=== PATIENT | female | born 1980 | race Caucasian/White ===

== ENCOUNTER 2020-10-07 20:45 | Inpatient (IN) | payer OTHER, SELFPAY ==
[2020-10-07 20:57] VITALS: BP 141/87; PULSE 85; RESP 20; TEMP 36.1; O2SAT 98; BMI 41.5
--- NOTE | 2020-10-07 21:06 | ED.PSYCH ---
HPI - Psych General Chief Complaint: Psychiatric Symptoms Stated Complaint: crisis Time Seen by Provider: 10/07/20 20:59 Source: patient Mode of arrival: ambulatory History of Present Illness HPI Narrative: Patient for respite care states I can not do it anymore I do not want to live . Denies drug overdose or plan. States very depressed and very stressed at the same time, took an Ativan prior to coming in however just cannot handle herself anymore. Denies chest pain shortness of breath or recent illness. Denies headache or abdominal pain MD complaint: suicidal ideation and feels depressed Related Data Home Medications Medication Instructions Recorded Confirmed acetazolamide 1 tab PO TID 10/07/20 10/07/20 duloxetine 1 cap PO DAILY 10/07/20 10/07/20 quetiapine 1 tab PO DAILY 10/07/20 10/07/20 Allergies Allergy/AdvReac Type Severity Reaction Status Date / Time metoclopramide [From REGLAN] Allergy Unknown AGITATION Unverified 07/30/20 18:37 sulfamethoxazole Allergy Unknown STOMACH Unverified 07/30/20 18:37 [From BACTRIM] UPSET trimethoprim [From BACTRIM] Allergy Unknown STOMACH Unverified 07/30/20 18:37 UPSET Review of Systems Review of Systems: Constitutional : No Weight loss, No Fever, No Chills, No Night Sweats, No Fatigue, No Malaise ENT/Mouth : No Hearing loss, No Ear Pain, No Nasal Congestion, No Sinus Pain, No Hoarseness, No sore throat, No Rhinorrhea, No Swallowing Difficulty Eyes: No Eye Pain, No Swelling, No Redness, No Foreign Body, No Discharge, No Vision Changes Cardiovascular : No Chest Pain, No SOB, No Dyspnea on Exertion, No Orthopnea, No Edema, No Palpitations Respiratory : No Cough, No Sputum, No Wheezing, No Smoke Exposure, No Dyspnea Gastrointestinal : No Nausea, No Vomiting, No Diarrhea, No Constipation, No abdominal Pain, No Hematochezia, No Melena Genitourinary : no irregular bleeding, No Dysuria, No Urinary Frequency, No Hematuria, No Urinary Incontinence, No Urgency, No Flank Pain, No Urinary Flow Changes, No Hesitancy Musculoskeletal : No joint pain, No Myalgias, No Joint Swelling Skin : No Skin Lesions, No rash Neuro : No Weakness, No Numbness, No Paresthesias, No Loss of Consciousness, No Dizziness, No Headache Psych : No Anxiety/Panic, positive Depression, positive SI/HI/AH/VH, No Social Issues, Heme/Lymph: No Bruising, No Bleeding,No Lymphadenopathy Endocrine : No Polyuria, No Polydipsia, No Temperature Intolerance PMF Past Medical History Medical History (Updated 10/07/20 @ 21:06 by Jeet Whitaker DO) Depressed PTSD (post-traumatic stress disorder) Family History Family History (Updated 10/07/20 @ 21:07 by Jeet Whitaker DO) Other Family history non-contributory Social History Social History (Updated 10/07/20 @ 21:07 by Jeet Whitaker DO) Household Members: Family Advance Directives: No Advance Directives Information Provided: Yes Physical Exam Vital Signs: Vital Signs: Last Vital Signs Temp 97.9 F 10/08/20 06:00 Pulse 72 10/08/20 06:00 Resp 18 10/08/20 06:00 BP 117/63 10/08/20 06:00 Pulse Ox 98 10/08/20 06:00 Body Mass Index 41.5 Vital signs reviewed Appearance: Alert. Oriented X3. No acute distress. Eyes: Pupils equal, round and reactive to light. ENT: Pharynx normal. Neck: Normal inspection. Neck supple. No lymph nodes noted. No crepitus CVS: Normal heart rate and rhythm. Pulses normal. Normal S1 and S2 Respiratory: No respiratory distress. Breath sounds normal. No Wheezing. No rales Abdomen: Soft and nontender. No rigidity. No distention. good BS x4 Skin: Skin warm and dry. Normal skin color. Normal skin turgor. Extremities: No lower extremity edema. Neurovascular intact to all extremities. No Lacerations. No Rash Neuro: Oriented X 3. No motor deficit. No sensory deficit. Moving all extermities. No slurred speech. Course Course Course Narrative: Patient is medically cleared for psych evaluation At 07:00 patient awaiting pH an evaluation MDM - Psych Restraints Face to Face Assessment: Face to Face Assessment: Current Situation: After assessment of the patient, a review of the pertinent medical record and a discussion with nursing staff, I feel the patient requires a restrain intervention. Reaction To: [] Medical Condition: [] Behavioral State: [] Continued Need: [] Medical Records Attestation: I reviewed the patient's medical records. Medical records narrative: Last psych evaluation seen patient is a history depression and poor coping skills with PTSD Discharge Plan Discharge Prescriptions: No Action acetazolamide 250 mg tablet 1 tab PO TID RF: 0 duloxetine 20 mg capsule,delayed release(DR/EC) 1 cap PO DAILY RF: 0 quetiapine 50 mg tablet 1 tab PO DAILY RF: 0
[2020-10-07] MEDS: HaloperidoL 1 MG TABLET 2 MG PO (21:26)
[2020-10-07] MEDS: LORazepam 1 MG TABLET PO (21:26)
--- NOTE | 2020-10-07 21:35 | PC.NURSE ---
Patient reported, she is mad , upset, depressed, angry, and frustrated but was unable to describe underlying trigger. Patient was actively self dialoguing and tearful, provider notified/ordered Haldol 2 mg and Ativan 1 mg/administered as ordered/ patient needed little of prompting.
--- NOTE | 2020-10-07 21:46 | PC.NURSE ---
ANSHU faxed/called/spoke with Anand/confirmed received of referral, no ETA at this time,
--- NOTE | 2020-10-07 23:29 | PC.NURSE ---
Patient refused her lab, will re-approach later, currently in bed seems sleeping, respiration +/=/non-labored bilaterally, will continue to monitor.
--- NOTE | 2020-10-08 02:01 | PC.NURSE ---
ROSARION completed assessment with patient, patient compliant and engaged, pending disposition, patient in bed currently lying on her side, no distress reported, will continue to monitor.
[2020-10-08 06:00] VITALS: BP 117/63; PULSE 72; RESP 18; TEMP 36.6; O2SAT 98
--- NOTE | 2020-10-08 06:56 | PC.NURSE ---
Report recieved. PT currently resting, breakfast at bedside. PT is inpatient bedsearch.
[2020-10-08 07:15] LABS: UPreg QC Valid YES; Urine Pregnancy NEGATIVE (NEGATIVE)
[2020-10-08 07:45] LABS: Amphetamine Screen Urine Not Detected (Not Detect); Barbiturates, Urine Not Detected (Not Detect); Benzodiazepines Screen Urine Not Detected (Not Detect); Cannabinoid Screen Urine Not Detected (Not Detect); Cocaine Screen Urine Not Detected (Not Detect); Opiate Screen Urine Not Detected (Not Detect); Phencyclidine Screen Urine Not Detected (Not Detect)
[2020-10-08 09:54] VITALS: BP 114/52; PULSE 79; RESP 18; TEMP 36.7; O2SAT 98
[2020-10-08 10:16] LABS: Basophils Percent Auto 0.3 % (0-2); Eosinophils Absolute Auto 0.3 X10*3/uL (0.0-0.4); Eosinophils Percent Auto 2.2 % (0-4); Hematocrit 41.7 % (37-47); Hemoglobin 13.9 g/dl (12.0-16.0); Imm Gran Abs Auto 0.03 X10*3/uL (0.00-0.03); Imm Gran Pct Auto 0.2 % (0.0-0.4); Lymphocytes Absolute Auto 5.3 X10*3/uL (1.2-4.9); Lymphocytes Percent Auto 39.2 % (20-40); MANUAL DIFF FLAG SCAN; Mean Corpuscular HGB Conc 33.3 g/dl (31.0-35.0); Mean Corpuscular Volume 96.1 fL (80-98); Mean Platelet Volume 10.1 fL (9.4-12.3); Monocytes Absolute Auto 1.1 X10*3/uL (0.1-1.2); Monocytes Percent Auto 7.8 % (2-11); Neutrophils Absolute Auto 6.9 X10*3/uL (2.0-8.3); Neutrophils Percent Auto 50.3 % (45-73); Platelet Count 270 X10*3/uL (160-400); Red Blood Count 4.34 X10*6/uL (4.20-5.50); Red Cell Distribution Width 13.2 % (11.0-16.0); SCAN SMEAR FLAG 1; White Blood Count 13.6 X10*3/uL (4.8-10.8)
[2020-10-08 10:42] LABS: Alanine Aminotransferase 19 U/L (0-31); Albumin Level 3.7 g/dL (3.5-5.0); Alkaline Phosphatase 75 U/L (39-117); Aspartate Amino Transferase 14 U/L (5-31); Bilirubin Direct < 0.2 mg/dL (0.0-0.5); Bilirubin Total 0.2 mg/dL (0.0-1.0); Blood Urea Nitrogen 13 mg/dL (9-16); Creatinine Clr Calc Pharmacy 119.1; Estimated Glomerular Filt Rate > 60; Glucose Random 87 mg/dL (60-115); Total Protein 6.3 g/dL (6.5-8.0)
[2020-10-08] MEDS: QUEtiapine Fumarate 50 MG TABLET PO (10:48)
[2020-10-08 10:57] LABS: Anion Gap 10 (12-20); Carbon Dioxide 26 mmol/L (22-29); Chloride 106 mmol/L (96-108); Potassium 4.1 mmol/l (3.3-5.1); Sodium 138 mmol/L (135-145)
[2020-10-08 11:05] LABS: SLIDE REVIEW VERIFIED
--- NOTE | 2020-10-08 16:34 | PC.NURSE ---
PT currently sleeping, wakes easily to verbal stimuli, minimal responses.
[2020-10-08 17:29] VITALS: BP 103/56; PULSE 70; RESP 18; TEMP 36.5; O2SAT 95
--- NOTE | 2020-10-08 19:04 | PC.NURSE ---
No development on bed search status, patient in bed resting, quiet, and no distress verbalized, will continue to monitor.
--- NOTE | 2020-10-08 20:31 | PC.NURSE ---
Patient in bed resting, ate 75% of her supper, refused her HS Diamox, denied distress. Will continue to monitor.
[2020-10-08 21:50] VITALS: BP 102/55; PULSE 68; RESP 16; TEMP 36.1; O2SAT 95
--- NOTE | 2020-10-08 21:50 | PC.NURSE ---
Patient has been not taking her Acetazolamide which is prescribed for her optic condition, attempted x3 to educate about the importance of medication, patient reported she is aware of the importance and does not want to take it. Provider notified
[2020-10-09] VITALS (9 sets, daily range): BP systolic 104–138; BP diastolic 56–72; PULSE 59–80; RESP 16–18; TEMP 36.3–36.6; O2SAT 96–98
--- NOTE | 2020-10-09 07:25 | PC.NURSE ---
Report received from ANDRIA Velasco. Pt resting, resp unlabored.
[2020-10-09] MEDS: QUEtiapine Fumarate 50 MG TABLET PO (09:59)
[2020-10-09 10:50] LABS: COVID-19 Test Negative (Negative); IDNOW Serial# 9DD0AD1C
--- NOTE | 2020-10-09 12:20 | PC.NURSE ---
Provider notified pt continuing to decline diamox.
--- NOTE | 2020-10-09 13:58 | PC.NURSE ---
Pt resting, resp unlabored
--- NOTE | 2020-10-09 18:57 | PC.NURSE ---
Report received. PT sitting in her room quietly. Complaints of dizziness reported to previous nurse. Provider notified. PT is inpatient bed search.
--- NOTE | 2020-10-09 18:57 | PC.NURSE ---
Pt reporting that she is 'not feeling right' and that she is dizzy. States that these symptoms have been present for over a month, 'that's part of the reason I'm here, I can't stand it anymore.' Pt encouraged to drink fluids, provided w/ water. Wilbur Lamb aware that pt is requesting to see provider.
--- NOTE | 2020-10-09 20:44 | CT_ITS ---
EXAMINATION: CT HEAD WITHOUT CONTRAST CLINICAL INFORMATION: Dizziness. COMPARISON: MRA/MRV from 04/23/2019. TECHNIQUE: Contiguous axial imaging was performed from the skull base to vertex without intravenous administration of contrast. This CT examination was performed using dose optimization techniques as appropriate, variously including the following: *Automated exposure control. *Adjustment of mA and/or kV according to patient size (this includes techniques or standardized protocols for targeted exams where dose is matched to indication/reason for exam; i.e. extremities or head). *Use of iterative reconstruction technique. DLP: 727 mGy-cm FINDINGS: There is no evidence of acute intracranial hemorrhage or edematous territorial infarction. There is no abnormal attenuation within the brain parenchyma. Mohamud-white matter differentiation is preserved. The ventricles are normal in size and configuration. No evidence for obstructive hydrocephalus. No abnormal mass effect or midline shift. The sella turcica is partially expanded empty. No extra-axial fluid collections. No demonstrated mass effect in the region of the right caudate head the site of potential focus of enhancement on prior MRA. No acute soft tissue or osseous abnormalities. The mastoid air cells and paranasal sinuses are clear. The right jugular bulb is mildly high riding. Otherwise, normal CT appearance of the inner ears. CT/CT head/brain wo con IMPRESSION: 1. No evidence of acute intracranial hemorrhage or edematous territorial infarction. 2. The right jugular bulb is mildly high riding. Otherwise, normal CT appearance of the inner ears.
[2020-10-09] MEDS: acetaZOLAMIDE 250 MG TABLET PO (21:15)
[2020-10-09] MEDS: Meclizine HCl 25 MG TABLET PO (21:15)
--- NOTE | 2020-10-09 23:29 | PC.NURSE ---
ANSHU called for MSU over the phone with the patient. PT accepted call and speaking with Katiuska now.
[2020-10-10] MEDS: diphenhydrAMINE HCL 25 MG TABLET PO (05:26)
--- NOTE | 2020-10-10 05:30 | PC.NURSE ---
PT woke up complaining of a shocking sensation throughout her body. PT stated that her prescribed medication, acetazolamide, along with additional meclizine helped to relieve the same symptoms last night. PT was previously refusing her acetazolamide TID in fear of it worsen her condition. PT was educated on the actions of the medication and encouraged to continue taking it at its intended times each day. PT agreed that she would continue taking the medication to help with her condition.
[2020-10-10 06:27] VITALS: RESP 17
--- NOTE | 2020-10-10 07:01 | PC.NURSE ---
Report received, pt eating breakfast, calm and cooperative. Pt remains inpatient bedsearch.
[2020-10-10] MEDS: acetaZOLAMIDE 250 MG TABLET PO ×3 (09:44→20:12)
[2020-10-10 10:03] VITALS: BP 126/66; PULSE 71; RESP 18; TEMP 36.3; O2SAT 98
[2020-10-10 16:36] VITALS: BP 112/68; PULSE 64; RESP 20; TEMP 36.8; O2SAT 97
--- NOTE | 2020-10-10 18:56 | PC.NURSE ---
Report received. PT is lying in bed quietly. Calm and cooperative. Inpatient bed search in progress.
[2020-10-10] MEDS: QUEtiapine Fumarate 50 MG TABLET PO (20:12)
[2020-10-10 21:04] VITALS: BP 115/68; PULSE 70; RESP 20; TEMP 36.9; O2SAT 98
[2020-10-11 01:07] VITALS: RESP 17
[2020-10-11 06:45] VITALS: BP 100/38; PULSE 64; RESP 17; TEMP 36.3; O2SAT 98
--- NOTE | 2020-10-11 07:05 | PC.NURSE ---
Report recieved. PT currently sleeping, respirations even and unlabored, in no apparent distress. PT remains inpatient bedsearch.
[2020-10-11] MEDS: acetaZOLAMIDE 250 MG TABLET PO ×3 (09:04→21:45)
[2020-10-11 09:41] VITALS: BP 104/63; PULSE 65; RESP 18; TEMP 36.4; O2SAT 97
--- NOTE | 2020-10-11 15:19 | PC.NURSE ---
Pt currently coloring, multiple questions about medications, medication education given. PT calm and cooperative, denies complaints. PT pleasant in conversation.
[2020-10-11 17:18] VITALS: BP 100/71; PULSE 64; RESP 18; TEMP 36.4; O2SAT 99
--- NOTE | 2020-10-11 19:17 | PC.NURSE ---
REPORT RECEIVED FROM ANDRIA CALHOUN. PATIENT STATES I HAVEN'T POOPED FOR A COUPLE OF DAYS, CAN I GET SOMETHING TO HELP WITH MY CONSTIPATION? MD NOTIFIED. PT REMAINS CALM/COOPERATIVE/PLEASANT. SEEN PREVIOUSLY BY Katiuska, SECTION 12, BEDSEARCH, PLAN FOR INPATIENT PLACEMENT. WILL CONTINUE TO MONITOR.
--- NOTE | 2020-10-11 20:51 | PC.NURSE ---
PATIENT REQUESTED AND GIVEN ICE WATER. PT REMAINS CALM/COOPERATIVE. COLORING AND WATCHING TV AT THIS TIME. WILL CONTINUE TO MONITOR. NO ACUTE DISTRESS NOTED.
[2020-10-11] MEDS: Milk of Magnesia 30 ML ORAL.SUSP PO (21:45)
[2020-10-11] MEDS: QUEtiapine Fumarate 50 MG TABLET PO (21:46)
--- NOTE | 2020-10-11 22:48 | PC.NURSE ---
PATIENT IN ROOM SLEEPING AT THIS TIME. NO ACUTE DISTRESS NOTED.
--- NOTE | 2020-10-11 23:34 | PC.NURSE ---
PATIENT REQUESTED AND GIVEN WARM BLANKET. NO ACUTE DISTRESS. WILL CONTINUE TO MONITOR.
[2020-10-11 23:39] VITALS: BP 128/69; PULSE 70; RESP 17; TEMP 36.8; O2SAT 17
--- NOTE | 2020-10-12 02:50 | PC.NURSE ---
PATIENT SLEEPING AT THIS TIME, RESPIRATIONS EVEN/UNLABORED. NO ACUTE DISTRESS NOTED. WILL CONTINUE TO MONITOR.
--- NOTE | 2020-10-12 07:19 | PC.NURSE ---
Report received from ANDRIA Pereira. Pt resting, resp unlabored.
[2020-10-12] MEDS: acetaZOLAMIDE 250 MG TABLET PO ×2 (09:08→20:55)
--- NOTE | 2020-10-12 10:36 | PC.NURSE ---
Care team called to notify the pod that pt has been accepted to [facility]. Pt aware and appears pleased w/ news. N clinician notified.
[2020-10-12 10:55] VITALS: BP 107/60; PULSE 75; RESP 20; TEMP 36.2
[2020-10-12 12:00] VITALS: RESP 18
[2020-10-12 12:58] LABS: Glucose Urine UA NEG (NEG); Leukocyte Esterase Urine NEG (NEG); Nitrite Urine NEG (NEG); Specific Gravity - Urine 1.015 (1.005-1.025); Urine Blood NEG (NEG); Urine Ketones NEG (NEG); Urine Protein NEG (NEG-TRACE)
[2020-10-12 13:02] LABS: Appearance Urine CLEAR; Color Urine YELLOW
[2020-10-12] MEDS: polyethylene glycoL 3350 17 GM POWD.PACK PO (13:29)
--- NOTE | 2020-10-12 13:47 | PC.NURSE ---
Pt alert, out in common area, coloring w/ another pt affect even. Report given to ANDRIA Damon.
--- NOTE | 2020-10-12 14:37 | PC.NURSE ---
Pt reports some results from [facility]. Care team in to transfer pt to . Pt in agreement w/ transfer, no concerns reported.
--- NOTE | 2020-10-12 19:00 | PC.ADMIT ---
pt is a 40 year-old female who presented to [facility] ED from respite due to verbalizing for safety and endorsing SI with a plan to jump in from of traffic. pt arrived on the m5 unit at 1420 and is known to the unit. pt is covid - utox screen - Pt is diagnosed with unspecified disorder, unspecified anxiety disorder, and unspecified personality disorder.Pt was anxious during admit and denied any pain, reported AH, but denied VH. Pt reported having poor sleep and appetite.Dr Carlotta Beltran called for orders and notified of admission. Pt is on 5mins safety checks and the pt uses a CPAP device at night. Pt was pleasant and cooperative on admit but stated that she wanted to change roommates and wanted to go home as soon as possible. Flat affect, stable mood, clear thoughts. Start treatment plan and monitor for safety
[2020-10-12] MEDS: QUEtiapine Fumarate 50 MG TABLET PO (20:25)
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
[2020-10-13 12:51] VITALS: BP 118/58; PULSE 73; RESP 16; TEMP 36.5; O2SAT 100
[2020-10-13 16:23] VITALS: BP 108/57; PULSE 72; TEMP 36.3
--- NOTE | 2020-10-13 16:23 | PC.NURSE ---
HAS RESCHEDULED APPOINTMENT WITH DR. ART MATAMOROS [phone] ON MondayDECEMBER 04 @ 130PM. THIS IS NEW APPOINTMENT SCHEDULED APPOINTMENT FOR 10/14 REQUIRED TO BE CANCELLED DUE TO HOSPITALIZATION.
[2020-10-13] MEDS: diphenhydrAMINE HCL 25 MG TABLET PO (22:11)
[2020-10-13] MEDS: QUEtiapine Fumarate 50 MG TABLET PO (22:12)
[2020-10-14] MEDS: diphenhydrAMINE HCL 25 MG TABLET PO ×2 (00:17→23:56)
[2020-10-14 06:20] VITALS: BP 98/55; PULSE 61; RESP 18; TEMP 36.2; O2SAT 98
[2020-10-14] MEDS: QUEtiapine Fumarate 25 MG TABLET PO ×2 (08:51→14:15)
[2020-10-14] MEDS: polyethylene glycoL 3350 17 GM POWD.PACK PO (08:51)
--- NOTE | 2020-10-14 12:37 | P.CNNE_ITS ---
History of Present Illness Data of Consult Service Date: 10/14/20 Primary Care Provider: Derrell Denson MD 40 years old woman known to me for chronic papilledema from idiopathic intracranial hypertension, migraine, depression, anxiety, PTSD, history of cocaine abuse, and history of alcohol abuse. She had been calling my office recently stating that she was having severe headache and after discussing it was decided to have a lumbar puncture to check her spinal fluid pressure. Her last lumbar puncture was in November of this year that revealed opening pressure of 29 cm per in 2019 her CSF opening pressure was 34 cm. At this time she was admitted on psychiatric floor with psychiatric symptoms. When I talked to her she said that headache now was either gone or minimal. She was complaining more of dizziness and tingling and numbness all over especially in her hands. Review of Systems Review of Systems: No recent trauma or cold or flu-like illness. FORMERLY [facility], [facility]–1983 Past Medical History Medical History (Updated 10/14/20 @ 12:41 by Matthieu Mcgraw MD) Bipolar II disorder Depressed PTSD (post-traumatic stress disorder) Suicidal thoughts Family History Family History (Updated 10/07/20 @ 21:07 by Jeet Whitaker DO) Other Family history non-contributory Social History Social History (Updated 10/07/20 @ 21:07 by Jeet Whitaker DO) Household Members: Family Housing: House Do you presently have visiting nurse or other home services: No Smoking Status: Current some day smoker Tobacco Type: Cigarette Packs Per Day: 10 Cigarettes Per Day: 200.0 Years Smoked: 20 Smoked in Last 30 Days: Yes Patient Interested in Nicotine Replacement: Yes Patient Given Instructions on How to Stop Smoking: Yes Date Education Initiated: 10/12/20 Second Hand Smoke Exposure: No Use of substances other than those prescribed or required for medical reasons: Yes Substance Use Type: Marijuana Substance Use Frequency: Daily Last Used Substance: Weeks (ago) Currently Displaying Signs/Symptoms of Drug Intoxication Withdrawal: No Any prior treatment program specific to substance use: No Have you been hit, kicked, punched, or otherwise hurt by someone within the past year? If so, by whom?: No Do you feel safe in your current relationship?: Yes Is there a partner from a previous relationship who is making you feel unsafe now?: No Are you made to feel afraid or neglected: No Advance Directives: No Advance Directives Information Provided: Yes Advance Directives on File: No Do you have thoughts of harming others: None Do you have a plan to hurt others: No Plan Recently lost weight without trying: No service: No Sexual orientation: Straight/Heterosexual Meds Allergies Allergy/AdvReac Type Severity Reaction Status Date / Time metoclopramide [From REGLAN] Allergy Unknown AGITATION Verified 10/09/20 19:45 sulfamethoxazole Allergy Unknown STOMACH Verified 10/09/20 19:45 [From BACTRIM] UPSET trimethoprim [From BACTRIM] Allergy Unknown STOMACH Verified 10/09/20 19:45 UPSET Home Medications Medication Instructions Recorded Confirmed Type acetazolamide 250 mg PO TID 10/07/20 10/09/20 History duloxetine 20 mg PO DAILY 10/07/20 10/09/20 History lorazepam 1 mg PO TID PRN 10/08/20 10/09/20 History quetiapine [Seroquel] 25 - 50 mg PO BEDTIME PRN 10/09/20 10/09/20 History quetiapine [Seroquel] 25 mg PO DAILY PRN 10/09/20 10/09/20 History Physical Exam Vital Signs: Vital Signs: Last Vital Signs Temp 97.2 F 10/14/20 06:20 Pulse 61 10/14/20 06:20 Resp 18 10/14/20 06:20 BP 98/55 L 10/14/20 06:20 Pulse Ox 98 10/14/20 06:20 Body Mass Index 41.5 She was alert and awake with normal spontaneity of speech fluency comprehension and anxious affect. There was no obvious tremor or dyskinesia. Balance gait a nd coordination were normal. Face was symmetrical. External ocular muscles were normal. Visual sykes were normal. Results Labs CBC & Chem 7: 10/08/20 10:05 10/08/20 10:05 Labs: Her noncontrast head CT did not reveal any significant pathology. Assessment and Plan (1) (Idiopathic) normal pressure hydrocephalus: Status: Acute 40 years old woman with chronic idiopathic intracranial hypertension that mainly presented as papilledema. She also had headaches but not continuously and many of those headaches had features of migraine. Recently she had called my office with more headaches. She said that ibuprofen helped and now she was not having too many headaches. I had scheduled an outpatient lumbar puncture. Her complaints at this time were mostly of dizziness and tingling and numbness on both sides of her body including her hands. Previously an EMG nerve conduction study of hands for same symptoms done in our office was unremarkable. At this time my recommendation is to not pursue lumbar puncture. She has an appointment to see her retina specialist and my suggestion would be to follow through with cycling instructor. If her ophthalmological parameters would worsen, I might consider checking her intracranial pressure again. Otherwise mainstay of management at this time is treatment of anxiety depression that could very well explain her dizziness and paresthesias. (2) Migraine: Status: Acute
[2020-10-14 18:00] VITALS: BP 118/77; PULSE 64; TEMP 36.4
--- NOTE | 2020-10-14 22:40 | HO.PSYCHPN ---
Subjective Subjective Date of Service: 10/14/20 Reason For Visit: suicidal ideation Interim History: pt anxious ruminating asking to retry cymbalta some improvement Medication Compliance: Yes Side effects from medications: Yes Attending Groups: Intermittent Mental Status Exam Mental Status Exam Patient Appearance: Disheveled Patient Behavior: Appropriate Mood Description: Depressed, Anxious, Labile, Sad and Nervous Ability to Follow Directions: Fair Hallucinations: Auditory (VAGUE ) Delusions: Not Present Perceptual Disturbances: Depersonalization and Derealization Thought Process: Racing, Distracted and Rumination Thought Content: positive for Obsessional Thoughts, positive for Perseveration and positive for Preoccupation Depressive Symptoms: Increased Anxiety, Insomnia, Increased Irritability, Crying Spells, Thoughts of /Suicide and Difficulty Concentrating Diagnostics Vital Signs (24Hr): Vital Signs - 24 hr 10/14/20 06:20 10/14/20 18:00 Temperature 97.2 F 97.6 F Pulse Rate 61 64 Respiratory Rate 18 Blood Pressure 98/55 L 118/77 Pulse Oximetry 98 Body Mass Index 41.5 Labs Results: 10/08/20 10:05 10/08/20 10:05 Imaging Radiology Impressions: ITS Impressions Head CT 10/09/20 20:44 IMPRESSION: 1. No evidence of acute intracranial hemorrhage or edematous territorial infarction. 2. The right jugular bulb is mildly high riding. Otherwise, normal CT appearance of the inner ears. Medications Medications Current Medications Generic Name Dose Route Start Last Admin Trade Name Freq PRN Reason Stop Dose Admin Acetazolamide 250 mg 10/08/20 09:00 10/14/20 16:50 Acetazolamide 250 Mg Tablet PO Not Given TID EMMANUEL Al Hydroxide/Mg Hydroxide 30 ml 10/12/20 18:29 Magnesium Hydrox/Alum Hydrox 30 Ml Oral.Susp PO Q6H PRN Heartburn/Nausea Clonidine HCl 0.1 mg 10/14/20 15:35 Clonidine Hcl 0.1 Mg Tablet PO Q4H PRN anxiety/restlessness Protocol Diphenhydramine HCl 25 mg 10/14/20 15:32 Diphenhydramine Hcl 25 Mg Tablet PO BEDTIME MRX1 PRN INsomnia Docusate Sodium 100 mg 10/12/20 13:19 Docusate Sodium 100 Mg Capsule PO BID PRN constipation Duloxetine HCl 30 mg 10/15/20 09:00 Duloxetine Hcl 30 Mg Capsule.Dr PO DAILY EMMANUEL Lactulose 10 gm 10/12/20 13:19 Lactulose 20 Gm/30 Ml Solution PO DAILY PRN constipation Lorazepam 1 mg 10/13/20 10:55 Lorazepam 1 Mg Tablet PO TID PRN Anxiety Magnesium Hydroxide 30 ml 10/11/20 21:00 Milk Of Magnesia 30 Ml Oral.Susp PO DAILY PRN Constipation Nicotine 14 mg 10/13/20 09:00 10/14/20 08:52 Nicotine 14 Mg Patch.Td24 TRANSDERMA Not Given DAILY EMMANUEL Nicotine Polacrilex 4 mg 10/12/20 18:29 Nicotine Polacrilex 2 Mg Gum BUCCAL Q2H PRN Nicotine Cravings Oxcarbazepine 300 mg 10/13/20 21:00 10/13/20 22:18 Oxcarbazepine 300 Mg Tablet PO Not Given BEDTIME EMMANUEL Polyethylene Glycol 17 gm 10/12/20 13:30 10/14/20 08:51 Polyethylene Glycol 3350 17 Gm Powd.Pack PO 17 gm DAILY EMMANUEL Administration Quetiapine Fumarate 50 mg 10/10/20 21:00 10/13/20 22:12 Quetiapine Fumarate 50 Mg Tablet PO 50 mg BEDTIME EMMANUEL Administration Quetiapine Fumarate 50 mg 10/13/20 16:40 Quetiapine Fumarate 50 Mg Tablet PO Q4H PRN Anxiety Quetiapine Fumarate 25 mg 10/14/20 08:30 10/14/20 14:15 Quetiapine Fumarate 25 Mg Tablet PO 25 mg BID@0830,1330 EMMANUEL Administration Allergies Allergies Allergy/AdvReac Type Severity Reaction Status Date / Time metoclopramide [From REGLAN] Allergy Unknown AGITATION Verified 10/09/20 19:45 sulfamethoxazole Allergy Unknown STOMACH Verified 10/09/20 19:45 [From BACTRIM] UPSET trimethoprim [From BACTRIM] Allergy Unknown STOMACH Verified 10/09/20 19:45 UPSET Assessment & Plan Assessment & Plan (1) (Idiopathic) normal pressure hydrocephalus: Status: Acute Code(s): G91.2 - (Idiopathic) normal pressure hydrocephalus (2) Bipolar II disorder: Status: Acute Code(s): F31.81 - Bipolar II disorder Assessment and Plan: seroquel trileptal (3) PTSD (post-traumatic stress disorder): Status: Acute Code(s): F43.10 - Post-traumatic stress disorder, unspecified Assessment and Plan: trileptal cymbalta Greater than 50% of the session was spent on counseling and/or coordination of care
[2020-10-14] MEDS: OXcarbazepine 300 MG TABLET PO (23:01)
[2020-10-14] MEDS: QUEtiapine Fumarate 50 MG TABLET PO (23:01)
[2020-10-15 06:50] VITALS: BP 100/50; PULSE 61; RESP 16; TEMP 36.6; O2SAT 99
[2020-10-15 07:00] VITALS: BMI 40.6
[2020-10-15 08:54] LABS: Alanine Aminotransferase 20 U/L (0-31); Albumin Level 4.1 g/dL (3.5-5.0); Alkaline Phosphatase 86 U/L (39-117); Anion Gap 11 (12-20); Aspartate Amino Transferase 16 U/L (5-31); Bilirubin Total 0.4 mg/dL (0.0-1.0); Blood Urea Nitrogen 13 mg/dL (9-16); Calcium 9.1 mg/dL (8.4-10.2); Carbon Dioxide 24 mmol/L (22-29); Chloride 109 mmol/L (96-108); Cholesterol 197 mg/dL; Creatinine Clr Calc Pharmacy 109.4; Estimated Glomerular Filt Rate > 60; Glucose Fasting 99 mg/dL (60-99); HDL Cholesterol 44 mg/dL; LDL Cholesterol Calculated 133 mg/dl; Potassium 4.4 mmol/l (3.3-5.1); Sodium 140 mmol/L (135-145); Total Protein 6.9 g/dL (6.5-8.0); Triglycerides 100 mg/dL
[2020-10-15 09:17] LABS: TSH reflex Free T4 0.93 mIU/mL (0.32-4.0)
[2020-10-15] MEDS: polyethylene glycoL 3350 17 GM POWD.PACK PO (09:17)
[2020-10-15] MEDS: DULoxetine HCl 30 MG CAPSULE.DR PO (09:17)
[2020-10-15] MEDS: QUEtiapine Fumarate 25 MG TABLET PO ×2 (09:17→14:14)
[2020-10-15 09:28] LABS: Folate 14.7 ng/mL (> or = 4.0); Vitamin B12 574 pg/mL (200-900)
[2020-10-15 10:01] LABS: Estimated Average Glucose 105 mg/dL; Hemoglobin A1c % 5.3 %
[2020-10-15 10:05] LABS: Reflex LDLD? No
[2020-10-15 19:00] VITALS: BP 119/56; PULSE 69; TEMP 36.7
[2020-10-15] MEDS: LORazepam 1 MG TABLET PO (19:40)
[2020-10-15] MEDS: OXcarbazepine 300 MG TABLET PO (22:44)
[2020-10-15] MEDS: QUEtiapine Fumarate 50 MG TABLET PO (22:44)
[2020-10-15] MEDS: diphenhydrAMINE HCL 25 MG TABLET PO (23:12)
--- NOTE | 2020-10-15 23:23 | HO.PSYCHPN ---
Subjective Subjective Date of Service: 10/15/20 Reason For Visit: suicidal ideation Subjective Notes: Conditional Voluntary Interim History: patient anxious dysphoric labile reactive question at response to Cymbalta extensive discussion regarding pseudotumor patient not wanting to take Diamox Medication Compliance: Yes Side effects from medications: Yes Attending Groups: Intermittent Mental Status Exam Mental Status Exam Patient Appearance: Disheveled Patient Orientation: Person, Place, Time and Situation Patient Behavior: Appropriate and Anxious Mood Description: Depressed, Anxious, Labile, Sad and Nervous Affect Description: Depressed, Anxious, Labile, Angry, Sad, Nervous and Apprehensive Ability to Follow Directions: Fair Hallucinations: Auditory (VAGUE ) Delusions: Not Present Perceptual Disturbances: Depersonalization and Derealization Thought Process: Racing, Distracted and Rumination Thought Content: positive for Obsessional Thoughts, positive for Perseveration and positive for Preoccupation Depressive Symptoms: Increased Anxiety, Insomnia, Increased Irritability, Crying Spells, Thoughts of /Suicide and Difficulty Concentrating Diagnostics Vital Signs (24Hr): Vital Signs - 24 hr 10/15/20 06:50 10/15/20 19:00 Temperature 97.8 F 98.0 F Pulse Rate 61 69 Respiratory Rate 16 Blood Pressure 100/50 L 119/56 L Pulse Oximetry 99 Body Mass Index 40.6 Labs Results: 10/08/20 10:05 10/15/20 07:55 Labs: Laboratory Results - last 48 hr 10/15/20 10/15/20 10/15/20 07:55 07:55 07:55 Sodium 140 Potassium 4.4 Chloride 109 H Carbon Dioxide 24 Anion Gap 11 L BUN 13 Creatinine 0.74 Estim Creat Clear Calc 109.4 Estimated GFR > 60 Fasting Glucose 99 Estimat Average Glucose 105 Hemoglobin A1c % 5.3 Calcium 9.1 Total Bilirubin 0.4 AST 16 ALT 20 Alkaline Phosphatase 86 Total Protein 6.9 Albumin 4.1 Triglycerides 100 Cholesterol 197 LDL Cholesterol, Calc 133 HDL Cholesterol 44 Vitamin B12 574 Folate 14.7 TSH 0.93 Imaging Radiology Impressions: ITS Impressions Head CT 10/09/20 20:44 IMPRESSION: 1. No evidence of acute intracranial hemorrhage or edematous territorial infarction. 2. The right jugular bulb is mildly high riding. Otherwise, normal CT appearance of the inner ears. Medications Medications Current Medications Generic Name Dose Route Start Last Admin Trade Name Freq PRN Reason Stop Dose Admin Acetazolamide 250 mg 10/08/20 09:00 10/15/20 22:46 Acetazolamide 250 Mg Tablet PO Not Given TID EMMANUEL Al Hydroxide/Mg Hydroxide 30 ml 10/12/20 18:29 Magnesium Hydrox/Alum Hydrox 30 Ml Oral.Susp PO Q6H PRN Heartburn/Nausea Clonidine HCl 0.1 mg 10/14/20 15:35 Clonidine Hcl 0.1 Mg Tablet PO Q4H PRN anxiety/restlessness Protocol Diphenhydramine HCl 25 mg 10/14/20 15:32 10/15/20 23:12 Diphenhydramine Hcl 25 Mg Tablet PO 25 mg BEDTIME MRX1 PRN Administration INsomnia Docusate Sodium 100 mg 10/12/20 13:19 Docusate Sodium 100 Mg Capsule PO BID PRN constipation Duloxetine HCl 30 mg 10/15/20 09:00 10/15/20 09:17 Duloxetine Hcl 30 Mg Capsule.Dr PO 30 mg DAILY EMMANUEL Administration Lactulose 10 gm 10/12/20 13:19 Lactulose 20 Gm/30 Ml Solution PO DAILY PRN constipation Lorazepam 1 mg 10/13/20 10:55 10/15/20 19:40 Lorazepam 1 Mg Tablet PO 1 mg TID PRN Administration Anxiety Magnesium Hydroxide 30 ml 10/11/20 21:00 Milk Of Magnesia 30 Ml Oral.Susp PO DAILY PRN Constipation Nicotine 14 mg 10/13/20 09:00 10/15/20 09:26 Nicotine 14 Mg Patch.Td24 TRANSDERMA Not Given DAILY EMMANUEL Nicotine Polacrilex 4 mg 10/12/20 18:29 Nicotine Polacrilex 2 Mg Gum BUCCAL Q2H PRN Nicotine Cravings Oxcarbazepine 300 mg 10/13/20 21:00 10/15/20 22:44 Oxcarbazepine 300 Mg Tablet PO 300 mg BEDTIME EMMANUEL Administration Polyethylene Glycol 17 gm 10/12/20 13:30 10/15/20 09:17 Polyethylene Glycol 3350 17 Gm Powd.Pack PO 17 gm DAILY EMMANUEL Administration Quetiapine Fumarate 50 mg 10/10/20 21:00 10/15/20 22:44 Quetiapine Fumarate 50 Mg Tablet PO 50 mg BEDTIME EMMANUEL Administration Quetiapine Fumarate 50 mg 10/13/20 16:40 Quetiapine Fumarate 50 Mg Tablet PO Q4H PRN Anxiety Quetiapine Fumarate 25 mg 10/14/20 08:30 12/03/20 14:14 Quetiapine Fumarate 25 Mg Tablet PO 25 mg BID@0830,1330 EMMANUEL Administration Allergies Allergies Allergy/AdvReac Type Severity Reaction Status Date / Time metoclopramide [From REGLAN] Allergy Unknown AGITATION Verified 10/09/20 19:45 sulfamethoxazole Allergy Unknown STOMACH Verified 10/09/20 19:45 [From BACTRIM] UPSET trimethoprim [From BACTRIM] Allergy Unknown STOMACH Verified 10/09/20 19:45 UPSET Assessment & Plan Assessment & Plan (1) PTSD (post-traumatic stress disorder): Status: Acute Code(s): F43.10 - Post-traumatic stress disorder, unspecified (2) Bipolar II disorder: Status: Acute Code(s): F31.81 - Bipolar II disorder (3) Suicidal thoughts: Status: Acute Code(s): R45.851 - Suicidal ideations (4) Pseudotumor cerebri syndrome: Status: Acute Code(s): G93.2 - Benign intracranial hypertension Assessment and Plan: patient with questionable mood instability secondary to duloxetine. Stop duloxetine. Continue Seroquel increase Trileptal patient anxious ruminating needs much reassurance Diamox discontinued patient was not taking be seen by Neuro-Ophthalmology outpatient consider Topamax which may also lower intracranial pressure would benefit from partial hospital referral post discharge Greater than 50% of the session was spent on counseling and/or coordination of care
[2020-10-16 06:55] VITALS: BP 94/51; PULSE 63; RESP 16; TEMP 36.6; O2SAT 98
[2020-10-16] MEDS: QUEtiapine Fumarate 25 MG TABLET PO ×2 (09:15→14:09)
[2020-10-16] MEDS: OXcarbazepine 150 MG TABLET PO (09:15)
[2020-10-16] MEDS: polyethylene glycoL 3350 17 GM POWD.PACK PO (09:16)
--- NOTE | 2020-10-16 09:19 | HO.PSYCHPN ---
Subjective Subjective Date of Service: 10/16/20 Reason For Visit: suicidal ideation Subjective Notes: Conditional Voluntary Interim History: Jeanette was pleasant and interactive. She states that she is tolerating the medications changes that have been made and would like to see how she does with these changes. Medication Compliance: Yes Side effects from medications: No Attending Groups: Yes Review of Systems Acute medical concerns: No Medical Review of Systems: unchanged Mental Status Exam Mental Status Exam Patient Appearance: Disheveled Patient Orientation: Person, Place, Time and Situation Patient Behavior: Appropriate and Anxious Mood Description: Depressed, Anxious, Labile, Sad and Nervous Affect Description: Depressed, Anxious, Labile, Angry, Sad, Nervous and Apprehensive Ability to Follow Directions: Fair Speech Pattern: Clear Hallucinations: Auditory (VAGUE ) Delusions: Not Present Perceptual Disturbances: Depersonalization and Derealization Thought Process: Racing, Distracted and Rumination Thought Content: positive for Obsessional Thoughts, positive for Perseveration, positive for Preoccupation, negative for Suicidal Ideation and negative for Homicidal Ideation Depressive Symptoms: Increased Anxiety, Insomnia, Increased Irritability, Crying Spells, Thoughts of /Suicide and Difficulty Concentrating Judgement: Fair Diagnostics Vital Signs (24Hr): Vital Signs - 24 hr 10/15/20 19:00 10/16/20 06:55 Temperature 98.0 F 97.8 F Pulse Rate 69 63 Respiratory Rate 16 Blood Pressure 119/56 L 94/51 L Pulse Oximetry 98 Body Mass Index 40.6 Labs Results: 10/08/20 10:05 10/15/20 07:55 Labs: Laboratory Results - last 48 hr 10/15/20 10/15/20 10/15/20 07:55 07:55 07:55 Sodium 140 Potassium 4.4 Chloride 109 H Carbon Dioxide 24 Anion Gap 11 L BUN 13 Creatinine 0.74 Estim Creat Clear Calc 109.4 Estimated GFR > 60 Fasting Glucose 99 Estimat Average Glucose 105 Hemoglobin A1c % 5.3 Calcium 9.1 Total Bilirubin 0.4 AST 16 ALT 20 Alkaline Phosphatase 86 Total Protein 6.9 Albumin 4.1 Triglycerides 100 Cholesterol 197 LDL Cholesterol, Calc 133 HDL Cholesterol 44 Vitamin B12 574 Folate 14.7 TSH 0.93 Imaging Radiology Impressions: ITS Impressions Head CT 10/09/20 20:44 IMPRESSION: 1. No evidence of acute intracranial hemorrhage or edematous territorial infarction. 2. The right jugular bulb is mildly high riding. Otherwise, normal CT appearance of the inner ears. Medications Medications Current Medications Generic Name Dose Route Start Last Admin Trade Name Freq PRN Reason Stop Dose Admin Al Hydroxide/Mg Hydroxide 30 ml 10/12/20 18:29 Magnesium Hydrox/Alum Hydrox 30 Ml Oral.Susp PO Q6H PRN Heartburn/Nausea Clonidine HCl 0.1 mg 10/14/20 15:35 Clonidine Hcl 0.1 Mg Tablet PO Q4H PRN anxiety/restlessness Protocol Diphenhydramine HCl 25 mg 10/14/20 15:32 10/15/20 23:12 Diphenhydramine Hcl 25 Mg Tablet PO 25 mg BEDTIME MRX1 PRN Administration INsomnia Docusate Sodium 100 mg 10/12/20 13:19 Docusate Sodium 100 Mg Capsule PO BID PRN constipation Lactulose 10 gm 10/12/20 13:19 Lactulose 20 Gm/30 Ml Solution PO DAILY PRN constipation Lorazepam 1 mg 10/13/20 10:55 10/15/20 19:40 Lorazepam 1 Mg Tablet PO 1 mg TID PRN Administration Anxiety Magnesium Hydroxide 30 ml 10/11/20 21:00 Milk Of Magnesia 30 Ml Oral.Susp PO DAILY PRN Constipation Nicotine 14 mg 10/13/20 09:00 10/16/20 09:16 Nicotine 14 Mg Patch.Td24 TRANSDERMA Not Given DAILY EMMANUEL Nicotine Polacrilex 4 mg 10/12/20 18:29 Nicotine Polacrilex 2 Mg Gum BUCCAL Q2H PRN Nicotine Cravings Oxcarbazepine 450 mg 10/16/20 21:00 Oxcarbazepine 150 Mg Tablet PO BEDTIME EMMANUEL Oxcarbazepine 150 mg 10/16/20 09:00 10/16/20 09:15 Oxcarbazepine 150 Mg Tablet PO 150 mg DAILY EMMANUEL Administration Polyethylene Glycol 17 gm 10/12/20 13:30 10/16/20 09:16 Polyethylene Glycol 3350 17 Gm Powd.Pack PO 17 gm DAILY EMMANUEL Administration Quetiapine Fumarate 50 mg 10/10/20 21:00 10/15/20 22:44 Quetiapine Fumarate 50 Mg Tablet PO 50 mg BEDTIME EMMANUEL Administration Quetiapine Fumarate 50 mg 10/13/20 16:40 Quetiapine Fumarate 50 Mg Tablet PO Q4H PRN Anxiety Quetiapine Fumarate 25 mg 10/14/20 08:30 10/16/20 09:15 Quetiapine Fumarate 25 Mg Tablet PO 25 mg BID@0830,1330 EMMANUEL Administration Allergies Allergies Allergy/AdvReac Type Severity Reaction Status Date / Time metoclopramide [From REGLAN] Allergy Unknown AGITATION Verified 10/09/20 19:45 sulfamethoxazole Allergy Unknown STOMACH Verified 10/09/20 19:45 [From BACTRIM] UPSET trimethoprim [From BACTRIM] Allergy Unknown STOMACH Verified 10/09/20 19:45 UPSET Assessment & Plan Assessment & Plan (1) PTSD (post-traumatic stress disorder): Status: Acute Code(s): F43.10 - Post-traumatic stress disorder, unspecified (2) Pseudotumor cerebri syndrome: Status: Acute Code(s): G93.2 - Benign intracranial hypertension (3) Bipolar II disorder: Status: Acute Code(s): F31.81 - Bipolar II disorder Assessment and Plan: CT current treatment plan Greater than 50% of the session was spent on counseling and/or coordination of care Patient educated on: diagnosis and medication risk/benefits Informed Consent: understands Reason for contiued inpatient stay Substantial Risk for: harm to self, inability to function and rapid decompensation
[2020-10-16] MEDS: OXcarbazepine 150 MG TABLET 450 MG PO (23:00)
[2020-10-16] MEDS: diphenhydrAMINE HCL 25 MG TABLET PO (23:00)
[2020-10-16] MEDS: QUEtiapine Fumarate 50 MG TABLET PO (23:01)
[2020-10-17] MEDS: QUEtiapine Fumarate 25 MG TABLET PO (09:00)
[2020-10-17] MEDS: OXcarbazepine 150 MG TABLET PO (09:01)
[2020-10-17] MEDS: polyethylene glycoL 3350 17 GM POWD.PACK PO (09:08)
--- NOTE | 2020-10-17 11:00 | HO.PSYCHPN ---
Subjective Subjective Date of Service: 10/17/20 Reason For Visit: suicidal ideation Subjective Notes: Conditional Voluntary Interim History: co sedation from medications wants lowered day time seroquel ongoing anxiety/ and worsened when dark - with changing of light noticed huge shift in mood/anxiety with day light savings Medication Compliance: Yes Side effects from medications: Yes (too tired) Attending Groups: Intermittent Review of Systems Acute medical concerns: No Review of Systems: positive for fatigue Mental Status Exam Mental Status Exam Narrative: dressed in [facility] Patient Appearance: Fatigued Patient Orientation: Person, Place, Time and Situation Level of Consciousness: Awake Patient Behavior: Appropriate Mood Description: Anxious Affect Description: Depressed and Labile Patient Cognition Impaired: No Speech Pattern: Clear and Perseverating Memory Description: Intact Hallucinations: None Delusions: Not Present Thought Process: Intact and Rumination Thought Content: positive for Intact and positive for Obsessional Thoughts Depressive Symptoms: Increased Anxiety, Sleeping More Than Usual and Thoughts of /Suicide Judgement: Fair Diagnostics Vital Signs (24Hr): Body Mass Index 40.6 Labs Results: 10/08/20 10:05 10/15/20 07:55 Imaging Radiology Impressions: ITS Impressions Head CT 10/09/20 20:44 IMPRESSION: 1. No evidence of acute intracranial hemorrhage or edematous territorial infarction. 2. The right jugular bulb is mildly high riding. Otherwise, normal CT appearance of the inner ears. Medications Medications Current Medications Generic Name Dose Route Start Last Admin Trade Name Freq PRN Reason Stop Dose Admin Al Hydroxide/Mg Hydroxide 30 ml 10/12/20 18:29 Magnesium Hydrox/Alum Hydrox 30 Ml Oral.Susp PO Q6H PRN Heartburn/Nausea Clonidine HCl 0.1 mg 10/14/20 15:35 Clonidine Hcl 0.1 Mg Tablet PO Q4H PRN anxiety/restlessness Protocol Diphenhydramine HCl 25 mg 10/14/20 15:32 10/16/20 23:00 Diphenhydramine Hcl 25 Mg Tablet PO 25 mg BEDTIME MRX1 PRN Administration INsomnia Docusate Sodium 100 mg 10/12/20 13:19 Docusate Sodium 100 Mg Capsule PO BID PRN constipation Lactulose 10 gm 10/12/20 13:19 Lactulose 20 Gm/30 Ml Solution PO DAILY PRN constipation Lorazepam 1 mg 10/13/20 10:55 10/15/20 19:40 Lorazepam 1 Mg Tablet PO 1 mg TID PRN Administration Anxiety Magnesium Hydroxide 30 ml 10/11/20 21:00 Milk Of Magnesia 30 Ml Oral.Susp PO DAILY PRN Constipation Nicotine 14 mg 10/13/20 09:00 10/17/20 09:08 Nicotine 14 Mg Patch.Td24 TRANSDERMA Not Given DAILY EMMANUEL Nicotine Polacrilex 4 mg 10/12/20 18:29 Nicotine Polacrilex 2 Mg Gum BUCCAL Q2H PRN Nicotine Cravings Oxcarbazepine 450 mg 10/16/20 21:00 10/16/20 23:00 Oxcarbazepine 150 Mg Tablet PO 450 mg BEDTIME EMMANUEL Administration Oxcarbazepine 150 mg 10/16/20 09:00 10/17/20 09:01 Oxcarbazepine 150 Mg Tablet PO 150 mg DAILY EMMANUEL Administration Polyethylene Glycol 17 gm 10/12/20 13:30 10/17/20 09:08 Polyethylene Glycol 3350 17 Gm Powd.Pack PO 17 gm DAILY EMMANUEL Administration Quetiapine Fumarate 50 mg 10/10/20 21:00 10/16/20 23:01 Quetiapine Fumarate 50 Mg Tablet PO 50 mg BEDTIME EMMANUEL Administration Quetiapine Fumarate 50 mg 10/13/20 16:40 Quetiapine Fumarate 50 Mg Tablet PO Q4H PRN Anxiety Quetiapine Fumarate 25 mg 10/14/20 08:30 10/17/20 09:00 Quetiapine Fumarate 25 Mg Tablet PO 25 mg BID@0830,1330 EMMANUEL Administration Allergies Allergies Allergy/AdvReac Type Severity Reaction Status Date / Time metoclopramide [From REGLAN] Allergy Unknown AGITATION Verified 10/09/20 19:45 sulfamethoxazole Allergy Unknown STOMACH Verified 10/09/20 19:45 [From BACTRIM] UPSET trimethoprim [From BACTRIM] Allergy Unknown STOMACH Verified 10/09/20 19:45 UPSET Assessment & Plan Assessment & Plan (1) PTSD (post-traumatic stress disorder): Status: Acute Code(s): F43.10 - Post-traumatic stress disorder, unspecified (2) Bipolar II disorder: Status: Acute Code(s): F31.81 - Bipolar II disorder Assessment and Plan: struggling with s/e of seroquel and inc trileptal - re sedation in day (3) Suicidal thoughts: Status: Acute Code(s): R45.851 - Suicidal ideations Assessment and Plan: some thoughts of sib but no plan and will let nursing know if she might act (4) Pseudotumor cerebri syndrome: Status: Acute Code(s): G93.2 - Benign intracranial hypertension Assessment and Plan: CT scan reviewed - Greater than 50% of the session was spent on counseling and/or coordination of care
[2020-10-17 14:45] VITALS: BP 109/54; PULSE 71
[2020-10-17 18:00] VITALS: BP 108/58; PULSE 64; TEMP 36.7
[2020-10-17] MEDS: LORazepam 1 MG TABLET PO (18:38)
[2020-10-17] MEDS: OXcarbazepine 150 MG TABLET 450 MG PO (22:39)
[2020-10-17] MEDS: QUEtiapine Fumarate 50 MG TABLET PO (22:40)
[2020-10-17] MEDS: diphenhydrAMINE HCL 25 MG TABLET PO (22:44)
[2020-10-18 06:00] VITALS: BP 116/55; PULSE 61; TEMP 36.7
[2020-10-18] MEDS: OXcarbazepine 150 MG TABLET PO (08:40)
[2020-10-18] MEDS: QUEtiapine Fumarate 25 MG TABLET 12.5 MG PO ×2 (08:43→15:10)
[2020-10-18] MEDS: polyethylene glycoL 3350 17 GM POWD.PACK PO (09:39)
--- NOTE | 2020-10-18 14:37 | HO.PSYCHPN ---
Subjective Subjective Date of Service: 10/18/20 Reason For Visit: suicidal ideation Subjective Notes: Conditional Voluntary Interim History: Nursing report pt was freaked out that I lowered her seroquel yesterday despite her and i having discussed it - previously- Today she reports she gets what I did but that she didn't get second 12.5mg dose ( she had had prior 25mg dose in am before I lowered it and had been complainging of sedation) Also reports xs vivid dreams/nigthmares we discussed trial of prazosin at night tonight Medication Compliance: Yes Side effects from medications: Yes (maybe inc dreams/ nightmares) Attending Groups: Yes Review of Systems Acute medical concerns: No Medical Review of Systems: unchanged Mental Status Exam Mental Status Exam Narrative: dressed in pajamas Patient Appearance: Well Grooomed Patient Orientation: Person, Place, Time and Situation Level of Consciousness: Awake Patient Behavior: Appropriate Mood Description: Anxious Affect Description: Calm Patient Cognition Impaired: No Ability to Follow Directions: Fair Speech Pattern: Clear and Perseverating Memory Description: Intact Hallucinations: None Delusions: Not Present Thought Process: Intact and Rumination Thought Content: positive for Disorganized Depressive Symptoms: Increased Anxiety, Sleeping More Than Usual and Thoughts of /Suicide Judgement: Fair Diagnostics Vital Signs (24Hr): Vital Signs - 24 hr 10/17/20 14:45 10/17/20 18:00 10/18/20 06:00 Temperature 98.1 F 98.0 F Pulse Rate 71 64 61 Blood Pressure 109/54 L 108/58 L 116/55 L Body Mass Index 40.6 Labs Results: 10/08/20 10:05 10/15/20 07:55 Imaging Radiology Impressions: ITS Impressions Head CT 10/09/20 20:44 IMPRESSION: 1. No evidence of acute intracranial hemorrhage or edematous territorial infarction. 2. The right jugular bulb is mildly high riding. Otherwise, normal CT appearance of the inner ears. Medications Medications Current Medications Generic Name Dose Route Start Last Admin Trade Name Freq PRN Reason Stop Dose Admin Al Hydroxide/Mg Hydroxide 30 ml 10/12/20 18:29 Magnesium Hydrox/Alum Hydrox 30 Ml Oral.Susp PO Q6H PRN Heartburn/Nausea Clonidine HCl 0.1 mg 10/14/20 15:35 Clonidine Hcl 0.1 Mg Tablet PO Q4H PRN anxiety/restlessness Protocol Diphenhydramine HCl 25 mg 10/14/20 15:32 10/17/20 22:44 Diphenhydramine Hcl 25 Mg Tablet PO 25 mg BEDTIME MRX1 PRN Administration INsomnia Docusate Sodium 100 mg 10/12/20 13:19 Docusate Sodium 100 Mg Capsule PO BID PRN constipation Lactulose 10 gm 10/12/20 13:19 Lactulose 20 Gm/30 Ml Solution PO DAILY PRN constipation Magnesium Hydroxide 30 ml 10/11/20 21:00 Milk Of Magnesia 30 Ml Oral.Susp PO DAILY PRN Constipation Nicotine Polacrilex 4 mg 10/12/20 18:29 Nicotine Polacrilex 2 Mg Gum BUCCAL Q2H PRN Nicotine Cravings Oxcarbazepine 450 mg 10/16/20 21:00 10/17/20 22:39 Oxcarbazepine 150 Mg Tablet PO 450 mg BEDTIME EMMANUEL Administration Oxcarbazepine 150 mg 10/16/20 09:00 10/18/20 08:40 Oxcarbazepine 150 Mg Tablet PO 150 mg DAILY EMMANUEL Administration Polyethylene Glycol 17 gm 10/12/20 13:30 10/18/20 09:39 Polyethylene Glycol 3350 17 Gm Powd.Pack PO 17 gm DAILY EMMANUEL Administration Quetiapine Fumarate 50 mg 10/10/20 21:00 10/17/20 22:40 Quetiapine Fumarate 50 Mg Tablet PO 50 mg BEDTIME EMMANUEL Administration Quetiapine Fumarate 12.5 mg 10/18/20 08:30 10/18/20 08:43 Quetiapine Fumarate 25 Mg Tablet PO 12.5 mg BID@0830,1330 EMMANUEL Administration Quetiapine Fumarate 25 mg 10/17/20 13:52 Quetiapine Fumarate 25 Mg Tablet PO Q4H PRN Anxiety Allergies Allergies Allergy/AdvReac Type Severity Reaction Status Date / Time metoclopramide [From REGLAN] Allergy Unknown AGITATION Verified 10/09/20 19:45 sulfamethoxazole Allergy Unknown STOMACH Verified 10/09/20 19:45 [From BACTRIM] UPSET trimethoprim [From BACTRIM] Allergy Unknown STOMACH Verified 10/09/20 19:45 UPSET Assessment & Plan Assessment & Plan (1) PTSD (post-traumatic stress disorder): Status: Acute Code(s): F43.10 - Post-traumatic stress disorder, unspecified Assessment and Plan: discussed nightmares- will try prazosin attending groups (2) Bipolar II disorder: Status: Acute Code(s): F31.81 - Bipolar II disorder Assessment and Plan: discussing adjusting of meds trileptal/seroquel (3) Suicidal thoughts: Status: Acute Code(s): R45.851 - Suicidal ideations Assessment and Plan: reports more thoughts about sib -but has contracted not to act on these thoughts Greater than 50% of the session was spent on counseling and/or coordination of care
[2020-10-18 18:00] VITALS: RESP 16
[2020-10-18] MEDS: LORazepam 1 MG TABLET PO (20:13)
[2020-10-18] MEDS: OXcarbazepine 150 MG TABLET 450 MG PO (23:15)
[2020-10-18] MEDS: QUEtiapine Fumarate 50 MG TABLET PO (23:18)
[2020-10-18] MEDS: diphenhydrAMINE HCL 25 MG TABLET PO (23:18)
[2020-10-19 06:50] VITALS: BP 94/58; PULSE 67; RESP 18; TEMP 36.5; O2SAT 97
[2020-10-19] MEDS: OXcarbazepine 150 MG TABLET PO (09:06)
[2020-10-19] MEDS: QUEtiapine Fumarate 25 MG TABLET 12.5 MG PO ×2 (09:06→15:06)
[2020-10-19] MEDS: polyethylene glycoL 3350 17 GM POWD.PACK PO (09:06)
--- NOTE | 2020-10-19 10:27 | HO.PSYCHPN ---
Subjective Subjective Date of Service: 10/20/20 Reason For Visit: suicidal ideation Subjective Notes: Conditional Voluntary Interim History: the patient is combination of irritable agitated with prominent PTSD symptoms and despair. Question of over sedation with Seroquel versus Trileptal Medication Compliance: Yes Side effects from medications: Yes Attending Groups: Intermittent Mental Status Exam Mental Status Exam Patient Appearance: Fatigued and Appropriate Patient Orientation: Person, Place, Time and Situation Level of Consciousness: Awake Patient Behavior: Appropriate Mood Description: Depressed, Anxious and Sad Affect Description: Anxious, Labile and Sad Ability to Follow Directions: Fair Speech Pattern: Clear and Pressured Memory Description: Working Impaired Hallucinations: None Delusions: Not Present Thought Process: Distracted Thought Content: positive for Perseveration, positive for Logical and positive for Suicidal Ideation (passive no active si) Depressive Symptoms: Hopelessness Diagnostics Vital Signs (24Hr): Vital Signs - 24 hr 10/18/20 18:00 10/19/20 06:50 Temperature 97.7 F Pulse Rate 67 Respiratory Rate 16 18 Blood Pressure 94/58 L Pulse Oximetry 97 Body Mass Index 40.6 Labs Results: 10/08/20 10:05 10/15/20 07:55 Imaging Radiology Impressions: ITS Impressions Head CT 10/09/20 20:44 IMPRESSION: 1. No evidence of acute intracranial hemorrhage or edematous territorial infarction. 2. The right jugular bulb is mildly high riding. Otherwise, normal CT appearance of the inner ears. Medications Medications Current Medications Generic Name Dose Route Start Last Admin Trade Name Freq PRN Reason Stop Dose Admin Al Hydroxide/Mg Hydroxide 30 ml 10/12/20 18:29 Magnesium Hydrox/Alum Hydrox 30 Ml Oral.Susp PO Q6H PRN Heartburn/Nausea Diphenhydramine HCl 25 mg 10/14/20 15:32 10/18/20 23:18 Diphenhydramine Hcl 25 Mg Tablet PO 25 mg BEDTIME MRX1 PRN Administration INsomnia Docusate Sodium 100 mg 10/12/20 13:19 Docusate Sodium 100 Mg Capsule PO BID PRN constipation Lactulose 10 gm 10/12/20 13:19 Lactulose 20 Gm/30 Ml Solution PO DAILY PRN constipation Lorazepam 1 mg 10/18/20 20:09 10/18/20 20:13 Lorazepam 1 Mg Tablet PO 1 mg Q6H PRN Administration Anxiety Magnesium Hydroxide 30 ml 10/11/20 21:00 Milk Of Magnesia 30 Ml Oral.Susp PO DAILY PRN Constipation Nicotine Polacrilex 4 mg 10/12/20 18:29 Nicotine Polacrilex 2 Mg Gum BUCCAL Q2H PRN Nicotine Cravings Oxcarbazepine 450 mg 10/16/20 21:00 10/18/20 23:15 Oxcarbazepine 150 Mg Tablet PO 450 mg BEDTIME EMMANUEL Administration Oxcarbazepine 150 mg 10/16/20 09:00 10/19/20 09:06 Oxcarbazepine 150 Mg Tablet PO 150 mg DAILY EMMANUEL Administration Polyethylene Glycol 17 gm 10/12/20 13:30 10/19/20 09:06 Polyethylene Glycol 3350 17 Gm Powd.Pack PO 17 gm DAILY EMMANUEL Administration Prazosin HCl 1 mg 10/18/20 21:00 10/18/20 23:16 Prazosin Hcl 1 Mg Capsule PO Not Given BEDTIME EMMANUEL Protocol Quetiapine Fumarate 50 mg 10/10/20 21:00 10/18/20 23:18 Quetiapine Fumarate 50 Mg Tablet PO 50 mg BEDTIME EMMANUEL Administration Quetiapine Fumarate 12.5 mg 10/18/20 08:30 10/19/20 09:06 Quetiapine Fumarate 25 Mg Tablet PO 12.5 mg BID@0830,1330 EMMANUEL Administration Quetiapine Fumarate 25 mg 10/17/20 13:52 Quetiapine Fumarate 25 Mg Tablet PO Q4H PRN Anxiety Allergies Allergies Allergy/AdvReac Type Severity Reaction Status Date / Time metoclopramide [From REGLAN] Allergy Unknown AGITATION Verified 10/09/20 19:45 sulfamethoxazole Allergy Unknown STOMACH Verified 10/09/20 19:45 [From BACTRIM] UPSET trimethoprim [From BACTRIM] Allergy Unknown STOMACH Verified 10/09/20 19:45 UPSET Assessment & Plan Assessment & Plan (1) Pseudotumor cerebri syndrome: Status: Acute Code(s): G93.2 - Benign intracranial hypertension (2) PTSD (post-traumatic stress disorder): Status: Acute Code(s): F43.10 - Post-traumatic stress disorder, unspecified (3) Bipolar II disorder: Status: Acute Code(s): F31.81 - Bipolar II disorder (4) ADHD (attention deficit hyperactivity disorder): Status: Acute Code(s): F90.9 - Attention-deficit hyperactivity disorder, unspecified type (5) Suicidal thoughts: Status: Acute Code(s): R45.851 - Suicidal ideations Assessment and Plan: continue Trileptal for mood instability PTSD/bipolar to continue prazosin patient not helped by clonidine hold Seroquel may be over sedating versus Trileptal Greater than 50% of the session was spent on counseling and/or coordination of care
[2020-10-19] MEDS: LORazepam 1 MG TABLET PO ×2 (15:34→23:22)
[2020-10-19 16:29] VITALS: BP 123/70; PULSE 89; TEMP 36.5
[2020-10-19] MEDS: diphenhydrAMINE HCL 25 MG TABLET PO (22:47)
[2020-10-19] MEDS: OXcarbazepine 150 MG TABLET 450 MG PO (22:48)
[2020-10-20 06:50] VITALS: BP 103/60; PULSE 76; RESP 16; TEMP 36.4; O2SAT 96
[2020-10-20] MEDS: polyethylene glycoL 3350 17 GM POWD.PACK PO (08:51)
--- NOTE | 2020-10-20 11:25 | HO.PSYCHPN ---
Subjective Subjective Date of Service: 10/20/20 Reason For Visit: suicidal ideation Subjective Notes: Conditional Voluntary Interim History: patient was less sedated with Seroquel held. Agreeable to trial of Latuda. Patient depressed anxious with intrusive PTSD symptoms less sedated today somewhat more hopeful Medication Compliance: Yes Mental Status Exam Mental Status Exam Patient Appearance: Appropriate Patient Orientation: Person, Place, Time and Situation Level of Consciousness: Awake Patient Behavior: Appropriate Mood Description: Depressed, Anxious and Sad Affect Description: Anxious, Labile and Sad Ability to Follow Directions: Fair Speech Pattern: Clear and Pressured Memory Description: Working Impaired Hallucinations: None Delusions: Not Present Thought Process: Distracted Thought Content: positive for Perseveration, positive for Logical and positive for Suicidal Ideation (passive no active si) Depressive Symptoms: Hopelessness Diagnostics Vital Signs (24Hr): Vital Signs - 24 hr 10/19/20 16:29 10/20/20 06:50 Temperature 97.7 F 97.6 F Pulse Rate 89 76 Respiratory Rate 16 Blood Pressure 123/70 103/60 Pulse Oximetry 96 Body Mass Index 40.6 Labs Results: 10/08/20 10:05 10/15/20 07:55 Imaging Radiology Impressions: ITS Impressions Head CT 10/09/20 20:44 IMPRESSION: 1. No evidence of acute intracranial hemorrhage or edematous territorial infarction. 2. The right jugular bulb is mildly high riding. Otherwise, normal CT appearance of the inner ears. Medications Medications Current Medications Generic Name Dose Route Start Last Admin Trade Name Freq PRN Reason Stop Dose Admin Al Hydroxide/Mg Hydroxide 30 ml 10/12/20 18:29 Magnesium Hydrox/Alum Hydrox 30 Ml Oral.Susp PO Q6H PRN Heartburn/Nausea Diphenhydramine HCl 25 mg 10/14/20 15:32 10/19/20 22:47 Diphenhydramine Hcl 25 Mg Tablet PO 25 mg BEDTIME MRX1 PRN Administration INsomnia Docusate Sodium 100 mg 10/12/20 13:19 Docusate Sodium 100 Mg Capsule PO BID PRN constipation Lactulose 10 gm 10/12/20 13:19 Lactulose 20 Gm/30 Ml Solution PO DAILY PRN constipation Lorazepam 1 mg 10/18/20 20:09 10/19/20 23:22 Lorazepam 1 Mg Tablet PO 1 mg Q6H PRN Administration Anxiety Lurasidone HCl 20 mg 10/20/20 09:00 Lurasidone Hcl 20 Mg Tablet PO DAILY [facility] Magnesium Hydroxide 30 ml 10/11/20 21:00 Milk Of Magnesia 30 Ml Oral.Susp PO DAILY PRN Constipation Nicotine Polacrilex 4 mg 10/12/20 18:29 Nicotine Polacrilex 2 Mg Gum BUCCAL Q2H PRN Nicotine Cravings Oxcarbazepine 600 mg 10/20/20 21:00 Oxcarbazepine 300 Mg Tablet PO BEDTIME EMMANUEL Polyethylene Glycol 17 gm 10/12/20 13:30 10/20/20 08:51 Polyethylene Glycol 3350 17 Gm Powd.Pack PO 17 gm DAILY EMMANUEL Administration Prazosin HCl 2 mg 10/20/20 21:00 Prazosin Hcl 1 Mg Capsule PO BEDTIME [facility] Protocol Quetiapine Fumarate 25 mg 10/17/20 13:52 Quetiapine Fumarate 25 Mg Tablet PO Q4H PRN Anxiety Allergies Allergies Allergy/AdvReac Type Severity Reaction Status Date / Time metoclopramide [From REGLAN] Allergy Unknown AGITATION Verified 10/09/20 19:45 sulfamethoxazole Allergy Unknown STOMACH Verified 10/09/20 19:45 [From BACTRIM] UPSET trimethoprim [From BACTRIM] Allergy Unknown STOMACH Verified 10/09/20 19:45 UPSET Assessment & Plan Assessment & Plan (1) ADHD (attention deficit hyperactivity disorder): Status: Acute Code(s): F90.9 - Attention-deficit hyperactivity disorder, unspecified type (2) Pseudotumor cerebri syndrome: Status: Acute Code(s): G93.2 - Benign intracranial hypertension (3) PTSD (post-traumatic stress disorder): Status: Acute Code(s): F43.10 - Post-traumatic stress disorder, unspecified (4) Bipolar II disorder: Status: Acute Code(s): F31.81 - Bipolar II disorder Assessment and Plan: monitor response to Latuda patient less sedated Seroquel schedule discontinue Greater than 50% of the session was spent on counseling and/or coordination of care
[2020-10-20] MEDS: Lurasidone HCl 20 MG TABLET PO (11:38)
[2020-10-20 18:00] VITALS: BP 128/58; PULSE 79; TEMP 36.5
[2020-10-20] MEDS: LORazepam 1 MG TABLET PO (20:16)
[2020-10-20] MEDS: diphenhydrAMINE HCL 25 MG TABLET PO (22:36)
[2020-10-20] MEDS: OXcarbazepine 300 MG TABLET 600 MG PO (22:37)
[2020-10-21 06:55] VITALS: BP 109/56; PULSE 78; RESP 18; TEMP 36.3; O2SAT 97
[2020-10-21] MEDS: Lurasidone HCl 20 MG TABLET PO (08:44)
[2020-10-21] MEDS: clonazePAM 0.5 MG TABLET PO ×2 (12:59→23:14)
--- NOTE | 2020-10-21 14:49 | PC.NURSE ---
Pt educated on Belly Breathing and Pursed Lip Breathing as a method to reduce anxiety during panic attacks and high stress situations. Pt educated through demonstration and provided written information and instructions, good return demonstration noted.
[2020-10-21 18:00] VITALS: BP 122/53; PULSE 92; TEMP 36.4
[2020-10-21] MEDS: LORazepam 1 MG TABLET PO (19:46)
[2020-10-21] MEDS: OXcarbazepine 300 MG TABLET 600 MG PO (23:14)
--- NOTE | 2020-10-22 | EEG_ITS ---
This is a 16-channel EEG with an EKG lead. The patient is reported awake during the tracing. Background EEG rhythm is mostly low to medium amplitude fast with no obvious asymmetry or paroxysmal tendency. Photic stimulation does not produce any significant abnormality. Hyperventilation is not performed. No sharp wave spikes or paroxysmal tendencies noted. Cardiac lead does not reveal any significant abnormality. IMPRESSION: Unremarkable EEG. MD CASEY Clay/DIAMOND / [id number]
[2020-10-22 07:00] VITALS: BMI 40.8
[2020-10-22] MEDS: Lurasidone HCl 20 MG TABLET PO (10:29)
[2020-10-22] MEDS: clonazePAM 0.5 MG TABLET PO (10:29)
[2020-10-22 10:37] VITALS: BP 108/57; PULSE 80; RESP 14; TEMP 36.4; O2SAT 97
[2020-10-22] MEDS: Ibuprofen 400 MG TABLET PO ×2 (10:43→20:56)
[2020-10-22] MEDS: LORazepam 1 MG TABLET PO (14:02)
--- NOTE | 2020-10-22 17:03 | HO.PSYCHPN ---
Subjective Subjective Date of Service: 10/22/20 Reason For Visit: suicidal ideation Interim History: patient less depressed more so stable less agitated. Needs much reassurance regarding what appears to be benign positional vertigo Medication Compliance: Yes Mental Status Exam Mental Status Exam Patient Appearance: Appropriate Patient Orientation: Person, Place, Time and Situation Level of Consciousness: Awake Patient Behavior: Appropriate Mood Description: Depressed, Anxious, Nervous and Apprehensive Affect Description: Anxious and Labile Ability to Follow Directions: Fair Speech Pattern: Clear and Pressured Memory Description: Working Impaired Hallucinations: None Delusions: Not Present Thought Process: Distracted Thought Content: positive for Perseveration, positive for Logical and negative for Suicidal Ideation (passive no active si) Depressive Symptoms: Hopelessness Diagnostics Vital Signs (24Hr): Vital Signs - 24 hr 10/21/20 18:00 10/22/20 10:37 Temperature 97.5 F 97.5 F Pulse Rate 92 80 Respiratory Rate 14 Blood Pressure 122/53 L 108/57 L Pulse Oximetry 97 Body Mass Index 40.8 Labs Results: 10/08/20 10:05 10/15/20 07:55 Imaging Radiology Impressions: ITS Impressions Head CT 10/09/20 20:44 IMPRESSION: 1. No evidence of acute intracranial hemorrhage or edematous territorial infarction. 2. The right jugular bulb is mildly high riding. Otherwise, normal CT appearance of the inner ears. Medications Medications Current Medications Generic Name Dose Route Start Last Admin Trade Name Freq PRN Reason Stop Dose Admin Al Hydroxide/Mg Hydroxide 30 ml 10/12/20 18:29 Magnesium Hydrox/Alum Hydrox 30 Ml Oral.Susp PO Q6H PRN Heartburn/Nausea Clonazepam 0.5 mg 10/21/20 11:15 10/22/20 10:29 Clonazepam 0.5 Mg Tablet PO 0.5 mg BID EMMANUEL Administration Diphenhydramine HCl 25 mg 10/14/20 15:32 10/20/20 22:36 Diphenhydramine Hcl 25 Mg Tablet PO 25 mg BEDTIME MRX1 PRN Administration INsomnia Docusate Sodium 100 mg 10/12/20 13:19 Docusate Sodium 100 Mg Capsule PO BID PRN constipation Ibuprofen 400 mg 10/22/20 02:10 10/22/20 10:43 Ibuprofen 400 Mg Tablet PO 400 mg Q6H PRN Administration Pain, Moderate (Pain Scale 4-6 Lactulose 10 gm 10/12/20 13:19 Lactulose 20 Gm/30 Ml Solution PO DAILY PRN constipation Lorazepam 1 mg 10/18/20 20:09 10/22/20 14:02 Lorazepam 1 Mg Tablet PO 1 mg Q6H PRN Administration Anxiety Lurasidone HCl 20 mg 10/20/20 09:00 10/22/20 10:29 Lurasidone Hcl 20 Mg Tablet PO 20 mg DAILY EMMANUEL Administration Magnesium Hydroxide 30 ml 10/11/20 21:00 Milk Of Magnesia 30 Ml Oral.Susp PO DAILY PRN Constipation Nicotine Polacrilex 4 mg 10/12/20 18:29 Nicotine Polacrilex 2 Mg Gum BUCCAL Q2H PRN Nicotine Cravings Oxcarbazepine 600 mg 10/20/20 21:00 10/21/20 23:14 Oxcarbazepine 300 Mg Tablet PO 600 mg BEDTIME EMMANUEL Administration Polyethylene Glycol 17 gm 10/12/20 13:30 10/22/20 10:30 Polyethylene Glycol 3350 17 Gm Powd.Pack PO Not Given DAILY EMMANUEL Prazosin HCl 2 mg 10/20/20 21:00 10/21/20 23:15 Prazosin Hcl 1 Mg Capsule PO Not Given BEDTIME [facility] Protocol Quetiapine Fumarate 25 mg 10/17/20 13:52 Quetiapine Fumarate 25 Mg Tablet PO Q4H PRN Anxiety Allergies Allergies Allergy/AdvReac Type Severity Reaction Status Date / Time metoclopramide [From REGLAN] Allergy Unknown AGITATION Verified 10/09/20 19:45 sulfamethoxazole Allergy Unknown STOMACH Verified 10/09/20 19:45 [From BACTRIM] UPSET trimethoprim [From BACTRIM] Allergy Unknown STOMACH Verified 10/09/20 19:45 UPSET Assessment & Plan Assessment & Plan (1) ADHD (attention deficit hyperactivity disorder): Status: Acute Code(s): F90.9 - Attention-deficit hyperactivity disorder, unspecified type (2) Pseudotumor cerebri syndrome: Status: Acute Code(s): G93.2 - Benign intracranial hypertension (3) PTSD (post-traumatic stress disorder): Status: Acute Code(s): F43.10 - Post-traumatic stress disorder, unspecified (4) Migraine: Status: Acute Code(s): G43.909 - Migraine, unspecified, not intractable, without status migrainosus (5) Bipolar II disorder: Status: Acute Code(s): F31.81 - Bipolar II disorder Assessment and Plan: patient calmer less agitated needs much reassurance continue plan of care referral to respite Greater than 50% of the session was spent on counseling and/or coordination of care
[2020-10-22 17:50] VITALS: BP 109/57; PULSE 77; TEMP 36.4
[2020-10-22] MEDS: OXcarbazepine 300 MG TABLET 600 MG PO (22:28)
[2020-10-22] MEDS: diphenhydrAMINE HCL 25 MG TABLET PO (22:28)
[2020-10-23] MEDS: diphenhydrAMINE HCL 25 MG TABLET PO ×2 (00:08→22:43)
[2020-10-23] MEDS: Lurasidone HCl 20 MG TABLET PO (09:13)
[2020-10-23 09:15] VITALS: BP 94/53; PULSE 90; RESP 16; TEMP 36.3; O2SAT 99
[2020-10-23] MEDS: LORazepam 1 MG TABLET PO (16:08)
[2020-10-23 18:00] VITALS: BP 106/53; PULSE 92; TEMP 36.2
[2020-10-23] MEDS: LORazepam 0.5 MG TABLET PO (22:41)
[2020-10-23] MEDS: OXcarbazepine 300 MG TABLET 600 MG PO (22:41)
--- NOTE | 2020-10-24 07:28 | HO.PSYCHPN ---
Subjective Subjective Date of Service: 10/24/20 Reason For Visit: suicidal ideation Interim History: patient less depressed more so stable less agitated. c/o poor sleep. Ct meds. DC Mon per Team plans Review of Systems Review of Systems No recent trauma or cold or flu-like illness. Mental Status Exam Mental Status Exam Narrative: [facility] Patient Appearance: Appropriate Patient Orientation: Person, Place, Time and Situation Level of Consciousness: Awake Patient Behavior: Appropriate Mood Description: Depressed, Anxious, Nervous and Apprehensive Affect Description: Anxious and Labile Patient Cognition Impaired: No Ability to Follow Directions: Fair Speech Pattern: Clear and Pressured Memory Description: Working Impaired Diagnostics Vital Signs (24Hr): Vital Signs - 24 hr 10/23/20 09:15 10/23/20 18:00 Temperature 97.4 F 97.2 F Pulse Rate 90 92 Respiratory Rate 16 Blood Pressure 94/53 L 106/53 L Pulse Oximetry 99 Body Mass Index 40.8 Labs Results: 10/24/20 08:05 10/15/20 07:55 Imaging Radiology Impressions: ITS Impressions Head CT 10/09/20 20:44 IMPRESSION: 1. No evidence of acute intracranial hemorrhage or edematous territorial infarction. 2. The right jugular bulb is mildly high riding. Otherwise, normal CT appearance of the inner ears. Medications Medications Current Medications Generic Name Dose Route Start Last Admin Trade Name Freq PRN Reason Stop Dose Admin Al Hydroxide/Mg Hydroxide 30 ml 10/12/20 18:29 Magnesium Hydrox/Alum Hydrox 30 Ml Oral.Susp PO Q6H PRN Heartburn/Nausea Diphenhydramine HCl 25 mg 10/14/20 15:32 10/23/20 22:43 Diphenhydramine Hcl 25 Mg Tablet PO 25 mg BEDTIME MRX1 PRN Administration INsomnia Docusate Sodium 100 mg 10/12/20 13:19 Docusate Sodium 100 Mg Capsule PO BID PRN constipation Ibuprofen 400 mg 10/22/20 02:10 10/22/20 20:56 Ibuprofen 400 Mg Tablet PO 400 mg Q6H PRN Administration Pain, Moderate (Pain Scale 4-6 Lactulose 10 gm 10/12/20 13:19 Lactulose 20 Gm/30 Ml Solution PO DAILY PRN constipation Lorazepam 0.5 mg 10/23/20 17:00 10/23/20 22:41 Lorazepam 0.5 Mg Tablet PO 0.5 mg TID EMMANUEL Administration Lurasidone HCl 20 mg 10/20/20 09:00 10/23/20 09:13 Lurasidone Hcl 20 Mg Tablet PO 20 mg DAILY EMMANUEL Administration Magnesium Hydroxide 30 ml 10/11/20 21:00 Milk Of Magnesia 30 Ml Oral.Susp PO DAILY PRN Constipation Nicotine Polacrilex 4 mg 10/12/20 18:29 Nicotine Polacrilex 2 Mg Gum BUCCAL Q2H PRN Nicotine Cravings Oxcarbazepine 600 mg 10/20/20 21:00 10/23/20 22:41 Oxcarbazepine 300 Mg Tablet PO 600 mg BEDTIME EMMANUEL Administration Polyethylene Glycol 17 gm 10/12/20 13:30 10/23/20 09:17 Polyethylene Glycol 3350 17 Gm Powd.Pack PO Not Given DAILY EMMANUEL Prazosin HCl 2 mg 10/20/20 21:00 10/23/20 22:14 Prazosin Hcl 1 Mg Capsule PO Not Given BEDTIME EMMANUEL Protocol Quetiapine Fumarate 25 mg 10/17/20 13:52 Quetiapine Fumarate 25 Mg Tablet PO Q4H PRN Anxiety Allergies Allergies Allergy/AdvReac Type Severity Reaction Status Date / Time metoclopramide [From REGLAN] Allergy Unknown AGITATION Verified 10/09/20 19:45 sulfamethoxazole Allergy Unknown STOMACH Verified 10/09/20 19:45 [From BACTRIM] UPSET trimethoprim [From BACTRIM] Allergy Unknown STOMACH Verified 10/09/20 19:45 UPSET Assessment & Plan Assessment & Plan (1) ADHD (attention deficit hyperactivity disorder): Status: Acute Code(s): F90.9 - Attention-deficit hyperactivity disorder, unspecified type (2) Pseudotumor cerebri syndrome: Status: Acute Code(s): G93.2 - Benign intracranial hypertension (3) PTSD (post-traumatic stress disorder): Status: Acute Code(s): F43.10 - Post-traumatic stress disorder, unspecified (4) Migraine: Status: Acute Code(s): G43.909 - Migraine, unspecified, not intractable, without status migrainosus (5) Bipolar II disorder: Status: Acute Code(s): F31.81 - Bipolar II disorder Assessment and Plan: patient calmer less agitated needs much reassurance continue plan of care referral to respite Greater than 50% of the session was spent on counseling and/or coordination of care
[2020-10-24 08:18] LABS: Basophils Absolute Auto 0.1 X10*3/uL (0.0-0.2); Basophils Percent Auto 0.5 % (0-2); Eosinophils Absolute Auto 0.4 X10*3/uL (0.0-0.4); Eosinophils Percent Auto 3.1 % (0-4); Hematocrit 36.6 % (37-47); Imm Gran Abs Auto 0.04 X10*3/uL (0.00-0.03); Imm Gran Pct Auto 0.3 % (0.0-0.4); Lymphocytes Absolute Auto 5.8 X10*3/uL (1.2-4.9); Lymphocytes Percent Auto 44.6 % (20-40); MANUAL DIFF FLAG SCAN; Mean Corpuscular HGB Conc 32.8 g/dl (31.0-35.0); Mean Corpuscular Hemoglobin 31.7 pg (27.0-33.0); Mean Corpuscular Volume 96.6 fL (80-98); Mean Platelet Volume 10.1 fL (9.4-12.3); Monocytes Absolute Auto 1.1 X10*3/uL (0.1-1.2); Monocytes Percent Auto 8.2 % (2-11); Neutrophils Absolute Auto 5.7 X10*3/uL (2.0-8.3); Neutrophils Percent Auto 43.3 % (45-73); Platelet Count 269 X10*3/uL (160-400); Red Blood Count 3.79 X10*6/uL (4.20-5.50); Red Cell Distribution Width 13.2 % (11.0-16.0); SCAN SMEAR FLAG 1; White Blood Count 13.1 X10*3/uL (4.8-10.8)
[2020-10-24] MEDS: Lurasidone HCl 20 MG TABLET PO (08:19)
[2020-10-24] MEDS: LORazepam 0.5 MG TABLET PO ×3 (08:19→20:02)
[2020-10-24 08:59] LABS: SLIDE REVIEW VERIFIED
[2020-10-24 13:48] VITALS: BP 106/54; PULSE 84; RESP 16; TEMP 36.3; O2SAT 95
[2020-10-24 18:00] VITALS: BP 105/61; PULSE 94; TEMP 36.7
[2020-10-24] MEDS: LORazepam 1 MG TABLET PO (22:00)
[2020-10-24] MEDS: OXcarbazepine 300 MG TABLET 600 MG PO (22:50)
[2020-10-25 06:00] VITALS: BP 115/56; PULSE 80; RESP 16; TEMP 36.2; O2SAT 97
[2020-10-25] MEDS: LORazepam 0.5 MG TABLET PO ×3 (08:33→21:24)
[2020-10-25] MEDS: Lurasidone HCl 20 MG TABLET PO (08:33)
--- NOTE | 2020-10-25 09:52 | P.PNPSI_ITS ---
Subjective Subjective Date of Service: 10/25/20 Reason For Visit: suicidal ideation Interim History: patient less depressed more so stable less agitated. c/o poor sleep. Dw pt using Seroqurl at HS. Got triggered by roommate but more composed today. Ct meds. DC Mon per Team plans Review of Systems Review of Systems No recent trauma or cold or flu-like illness. Mental Status Exam Mental Status Exam Narrative: dressed in [facility] Patient Appearance: Appropriate Patient Orientation: Person, Place, Time and Situation Level of Consciousness: Awake Patient Behavior: Appropriate Mood Description: Depressed, Anxious, Nervous and Apprehensive Affect Description: Anxious and Labile Patient Cognition Impaired: No Ability to Follow Directions: Fair Speech Pattern: Clear and Pressured Memory Description: Working Impaired Diagnostics Vital Signs (24Hr): Vital Signs - 24 hr 10/24/20 13:48 10/24/20 18:00 10/25/20 06:00 Temperature 97.4 F 98.0 F 97.1 F Pulse Rate 84 94 80 Respiratory Rate 16 16 Blood Pressure 106/54 L 105/61 115/56 L Pulse Oximetry 95 97 Body Mass Index 40.8 Labs Results: 10/24/20 08:05 10/15/20 07:55 Labs: Laboratory Results - last 48 hr 10/24/20 08:05 WBC 13.1 H RBC 3.79 L Hgb 12.0 Hct 36.6 L MCV 96.6 MCH 31.7 MCHC 32.8 RDW 13.2 Plt Count 269 MPV 10.1 Immature Gran % (Auto) 0.3 Neut % (Auto) 43.3 L Lymph % (Auto) 44.6 H Haakon % (Auto) 8.2 Eos % (Auto) 3.1 Baso % (Auto) 0.5 Lymph # (Auto) 5.8 H Haakon # (Auto) 1.1 Eos # (Auto) 0.4 Baso # (Auto) 0.1 Abs Immat Gran (auto) 0.04 H Absolute Neuts (auto) 5.7 Absolute Nucleated RBC 0.000 Nucleated RBC % (auto) 0.0 Smear Tech's Comments VERIFIED Imaging Radiology Impressions: ITS Impressions Head CT 10/09/20 20:44 IMPRESSION: 1. No evidence of acute intracranial hemorrhage or edematous territorial infarction. 2. The right jugular bulb is mildly high riding. Otherwise, normal CT appearance of the inner ears. Medications Medications Current Medications Generic Name Dose Route Start Last Admin Trade Name Freq PRN Reason Stop Dose Admin Al Hydroxide/Mg Hydroxide 30 ml 10/12/20 18:29 Magnesium Hydrox/Alum Hydrox 30 Ml Oral.Susp PO Q6H PRN Heartburn/Nausea Diphenhydramine HCl 25 mg 10/14/20 15:32 10/23/20 22:43 Diphenhydramine Hcl 25 Mg Tablet PO 25 mg BEDTIME MRX1 PRN Administration INsomnia Docusate Sodium 100 mg 10/12/20 13:19 Docusate Sodium 100 Mg Capsule PO BID PRN constipation Ibuprofen 400 mg 10/22/20 02:10 10/22/20 20:56 Ibuprofen 400 Mg Tablet PO 400 mg Q6H PRN Administration Pain, Moderate (Pain Scale 4-6 Lactulose 10 gm 10/12/20 13:19 Lactulose 20 Gm/30 Ml Solution PO DAILY PRN constipation Lorazepam 0.5 mg 10/23/20 17:00 10/25/20 08:33 Lorazepam 0.5 Mg Tablet PO 0.5 mg TID EMMANUEL Administration Lurasidone HCl 20 mg 10/20/20 09:00 10/25/20 08:33 Lurasidone Hcl 20 Mg Tablet PO 20 mg DAILY EMMANUEL Administration Magnesium Hydroxide 30 ml 10/11/20 21:00 Milk Of Magnesia 30 Ml Oral.Susp PO DAILY PRN Constipation Nicotine Polacrilex 4 mg 10/12/20 18:29 Nicotine Polacrilex 2 Mg Gum BUCCAL Q2H PRN Nicotine Cravings Oxcarbazepine 600 mg 10/20/20 21:00 10/24/20 22:50 Oxcarbazepine 300 Mg Tablet PO 600 mg BEDTIME EMMANUEL Administration Polyethylene Glycol 17 gm 10/12/20 13:30 10/25/20 08:34 Polyethylene Glycol 3350 17 Gm Powd.Pack PO Not Given DAILY EMMANUEL Prazosin HCl 4 mg 10/24/20 21:00 10/24/20 22:52 Prazosin Hcl 1 Mg Capsule PO Not Given BEDTIME [facility] Protocol Quetiapine Fumarate 25 mg 10/17/20 13:52 Quetiapine Fumarate 25 Mg Tablet PO Q4H PRN Anxiety Allergies Allergies Allergy/AdvReac Type Severity Reaction Status Date / Time metoclopramide [From REGLAN] Allergy Unknown AGITATION Verified 11/27/20 19:45 sulfamethoxazole Allergy Unknown STOMACH Verified 10/09/20 19:45 [From BACTRIM] UPSET trimethoprim [From BACTRIM] Allergy Unknown STOMACH Verified 10/09/20 19:45 UPSET Assessment & Plan Assessment & Plan (1) ADHD (attention deficit hyperactivity disorder): Status: Acute Code(s): F90.9 - Attention-deficit hyperactivity disorder, unspecified type (2) Pseudotumor cerebri syndrome: Status: Acute Code(s): G93.2 - Benign intracranial hypertension (3) PTSD (post-traumatic stress disorder): Status: Acute Code(s): F43.10 - Post-traumatic stress disorder, unspecified (4) Migraine: Status: Acute Code(s): G43.909 - Migraine, unspecified, not intractable, without status migrainosus (5) Bipolar II disorder: Status: Acute Code(s): F31.81 - Bipolar II disorder Assessment and Plan: patient calmer less agitated needs much reassurance continue plan of care referral to respite Greater than 50% of the session was spent on counseling and/or coordination of care
[2020-10-25] MEDS: QUEtiapine Fumarate 25 MG TABLET PO (13:45)
[2020-10-25] MEDS: OXcarbazepine 300 MG TABLET 600 MG PO (22:41)
[2020-10-25 22:44] VITALS: BP 92/54; PULSE 93; TEMP 36.5
[2020-10-26] MEDS: Lurasidone HCl 20 MG TABLET PO (09:47)
[2020-10-26] MEDS: LORazepam 0.5 MG TABLET PO (09:47)
[2020-10-26 11:14] LABS: COVID-19 Test Negative (Negative); IDNOW Serial# 9DD0AD1C
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
[2020-11-02 18:23] LABS: BCR Prior Result Not Given; P190 BCR/ABL1 Not Detected; P210 BCR/ABL1 Not Detected
== END 2020-10-26 14:50 | disposition other institution (70) | DRG 885 ==
LOC: HO.ED 10-08 22:04 → HO.PM5 10-12 14:38
PROVIDERS: Physician Assistant Medical; Admitting Provider Psychiatry & Neurology Psychiatry; Emergency Provider Emergency Medicine; PCP Internal Medicine; Visit Provider Psychiatry & Neurology Psychiatry
DX: F31.81 Bipolar II disorder (principal); R45.851 Suicidal ideations; G43.909 Migraine, unspecified, not intractable, without status migrainosus; F17.210 Nicotine dependence, cigarettes, uncomplicated; G93.2 Benign intracranial hypertension; F90.9 Attention-deficit hyperactivity disorder, unspecified type; Z71.6 Tobacco abuse counseling; F43.10 Post-traumatic stress disorder, unspecified; Z20.828 Contact with and (suspected) exposure to other viral communicable diseases; Z88.2 Allergy status to sulfonamides; Z79.1 Long term (current) use of non-steroidal anti-inflammatories (NSAID); Z79.899 Other long term (current) drug therapy
CPT/HCPCS: 36415; 70450; 80048; 80053; 80061; 80076; 80307; 81003; 81025; 81206; 81207; 82607; 82746; 83036; 84443; 85025; 87635; 95816; 99222; 99232; 99285; Q0163

== ENCOUNTER 2023-10-02 10:57 | Outpatient (AMB) | payer OTHER, SELFPAY ==
--- NOTE | 2023-10-02 11:07 | MHC.OFFVIS ---
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 She c/o headaches, dizziness, nausea, dizziness for about 4 years. 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: No Allergies doxycycline Allergy (Intermediate, Verified 10/02/23 11:15) Headache haloperidol [From Haldol] Allergy (Intermediate, Verified 10/02/23 11:15) Anxiety metoclopramide [From REGLAN] Allergy (Unknown, Verified 10/02/23 11:15) AGITATION sulfamethoxazole [From BACTRIM] Allergy (Unknown, Verified 10/02/23 11:15) STOMACH UPSET trimethoprim [From BACTRIM] Allergy (Unknown, Verified 10/02/23 11:15) STOMACH UPSET Medication List - Last Reconciled 10/02/23 by Madhavi Walton MD ibuprofen 400 mg PO Q6H PRN 30 days lorazepam 1 mg PO DAILY PRN lorazepam 0.5 mg PO TID 30 days sertraline (Zoloft) 25 mg PO DAILY HPI HPI Comments History of Present Illness Details 43y/o female comes for further management of benign intracranial hypertension and migraines. she was seeing Dr. Mcgraw and is here for second opinion. she was diagnosed with intracranial hypertension in - had Lumbar puncture , was on diamox which she was non compliant initially and then restarted. But during her visit last week he stopped as her headaches have resolved. As per Dr. Smith note her opening pressure was 34 about 3 years ago.3-4 years ago she had vision changes was seen by retina specialist - diagnosed with papilledema and then started seeing Lucien Whittington.In February 2023 - she had eye appointment - there was no papilledema and has a 1 year f/u. Patient is a poor historian and I am unable to figure out when her headaches started. She describes the headaches as left sided or frontal headaches- pressure . she denies any light sensitivty or noise sensitivity , she has nausea when severe. No loss of vision or blurry vision.Now she has rare headaches 1 a month resolves with OTC meds . she usually has a trigger food or stress. she had headaches triggered by doxycycline, tretinoin etc. she also reports dizziness. It started in 2018 . she describes the sensation as being on roller coaster. It was infrequent and now it is frequent with change in head position.she has 1 episode lasting for 1 week /month.she has left ear tinnitus, pulsating noise. she has nausea and changes her head position triggers her dizziness. she went to vestibular therapy twice - was told it was not BPV. [facility] Medical History (Updated 10/02/23 @ 12:03 by Madhavi Walton MD) Cervicalgia Vertigo Alcohol abuse Cocaine abuse H/O pilonidal cyst ADHD (attention deficit hyperactivity disorder) Pseudotumor cerebri syndrome (Idiopathic) normal pressure hydrocephalus Bipolar II disorder Suicidal thoughts PTSD (post-traumatic stress disorder) Depressed Surgical History H/O removal of cyst Family History Other Family history non-contributory Social History Household Members: Family Housing: House Do you presently have visiting nurse or other home services: No Cigarette Packs Per Day: 10 Cigarettes Per Day: 200.0 Years Smoked: 20 Second Hand Smoke Exposure: No Substance Use Type: Marijuana service: No Sexual orientation: Straight/Heterosexual Review of Systems Const Reports fatigue and Reports lethargy Eyes Reports blurry vision ENT Reports vertigo, Reports dizziness and Reports neck pain Musc Reports back pain, Reports neck pain, Reports numbness and Reports tingling Neuro Reports vertigo, Reports dizziness, Reports numbness and Reports tingling Psych Reports anxiety, Reports depression and Reports mood swings Endo Reports fatigue Physical Exam Vital Signs: Last Vital Signs Pulse 95 10/02/23 11:11 Resp 16 10/02/23 11:11 BP 124/86 10/02/23 11:11 Pulse Ox 98 10/02/23 11:11 Oxygen Delivery Method Room Air 10/02/23 11:11 BMI result Body Mass Index 31.6 Const General: cooperative, healthy appearing, comfortable and no acute distress Nutritional Appearance: average body habitus Orientation/consciousness: patient oriented x3 Eyes Pupils: Equal, round and reactive pupils present Neuro Other: mild left proptosis . left gaze nystagmus General: patient oriented x3, gait normal, tone normal, moves all extremities and no focal motor deficits Cranial nerves: Yes Equal, round and reactive pupils present, Yes Bilaterally intact EOM present, Yes Nystagmus not present, Yes Normal facial strength present, Yes Midline tongue present and Yes Symmetric palate elevation present Cognition (Neuro): normal cognition Gait exam (Neuro): Normal gait present Deep tendon reflexes (DTR's): Right triceps reflex intensity grade: 1+, Left triceps reflex intensity grade: 1+, Rt Biceps (C5, C6): 1+, Left biceps reflex intensity grade: 1+, Right brachioradialis reflex intensity grade: 1+, Left brachioradialis reflex intensity grade: 1+, Right patellar reflex intensity grade: 1+ and Left patellar reflex intensity grade: 1+ Coordination: [id number] test normal Assessment & Plan Assessment & Plan (1) Cervicalgia: Code(s): M54.2 - Cervicalgia (2) Vertigo: Code(s): R42 - Dizziness and giddiness Plan MRI brain I will refer her to PT for neck and Vestibular therapy. Her headaches are infrequent and her eye exam in February 2023 was normal .( no need for spinal tap now) Orders: Orders MR head/brain wo con Today R42 - Dizziness and giddiness PT Evaluation and Treatment Today R42 - Dizziness and giddiness PT Evaluation and Treatment Today M54.2 - Cervicalgia Medications: New magnesium oxide 400 mg PO BEDTIME 30 tabs 6RF Coding Level of Care Code New Pt Level 4 (43083) Diagnoses Cervicalgia M54.2 Vertigo R42
[2023-10-02 11:11] VITALS: BP 124/86; PULSE 95; RESP 16; O2SAT 98; BMI 31.6
== END 2023-10-02 12:07 | disposition home or self-care (01) ==
PROVIDERS: Visit Provider Psychiatry & Neurology Neurology
DX: M54.2 Cervicalgia (principal); R42 Dizziness and giddiness
CPT/HCPCS: 99204

== ENCOUNTER → 2023-10-02 10:57 | Outpatient (BNVA) | payer OTHER, SELFPAY | PROVIDERS: Visit Provider Psychiatry & Neurology Neurology | DX: M54.2 Cervicalgia (principal); R42 Dizziness and giddiness | CPT/HCPCS: 99202 ==

== ENCOUNTER 2023-11-16 16:32 | Outpatient (REF) | payer OTHER, SELFPAY | END 2023-11-16 16:33 | disposition home or self-care (01) | LOC: HO.MRI 16:32 | PROVIDERS: PCP Internal Medicine; Visit Provider Psychiatry & Neurology Neurology | DX: R42 Dizziness and giddiness (principal) | CPT/HCPCS: 70551 ==

== ENCOUNTER 2023-11-22 07:28 | Outpatient (AMB) | payer OTHER, SELFPAY ==
--- NOTE | 2023-11-22 07:36 | A.OFFVIS_ITS ---
Intake Vital Signs 11/22/23 07:37 Height 5 ft 1 in BP 100/74 Blood Pressure Location Rt brachial Position Sitting Pulse 84 Pulse Source Pulse Oximeter Pulse Oximetry (%) 98 Oxygen Delivery Method Room Air Intake Visit Reasons: hospital f/u for vertigo - LVM Intake Note: Patient presents for hospital follow up vertigo. Allergies doxycycline Allergy (Intermediate, Verified 11/22/23 07:44) Headache haloperidol [From Haldol] Allergy (Intermediate, Verified 11/22/23 07:44) Anxiety metoclopramide [From REGLAN] Allergy (Unknown, Verified 11/22/23 07:44) AGITATION sulfamethoxazole [From BACTRIM] Allergy (Unknown, Verified 11/22/23 07:44) STOMACH UPSET trimethoprim [From BACTRIM] Allergy (Unknown, Verified 11/22/23 07:44) STOMACH UPSET Medication List - Last Reconciled 11/22/23 by Madhavi Walton MD ibuprofen 400 mg PO Q6H PRN 30 days lorazepam 1 mg PO DAILY PRN lorazepam 0.5 mg PO TID 30 days magnesium oxide 400 mg PO BEDTIME sertraline (Zoloft) 25 mg PO DAILY HPI HPI Comments History of Present Illness Details 43[facility] intracranial hypertension and migraines, neck pain. she is doing PT but not sure it helps. she went to ER twice in the forehead pressure, neck pain , tingling in the face , jaw, dizziness( feels her body is not right in space. she also feels her memory is worsening feels foggy.she was seen by special projects coordinator ( Dr. Luis Long ( [place]) )yesterday and was told that she has no papilledema. she wakes up in the morning with severe vertigo lasting 15 minutes.she says the forehead pressure has been almost evevryday and lasts 30 minutes and usually associated with eye strain - feels like ehr eyes are crossing. Her anxiety and depression are worse, has mood swings and has panic attacks.she sees a psychiatrist and uses ativan as needed. History from initial visit- she was diagnosed with intracranial hypertension in - had Lumbar puncture , was on diamox which she was non compliant initially and then restarted. But during her visit last week he stopped as her headaches have resolved. As per Dr. Smith note her opening pressure was 34 about 3 years ago.3-4 years ago she had vision changes was seen by retina specialist - diagnosed with papilledema and then started seeing Lucien Whittington.In February 2023 - she had eye appointment - there was no papilledema and has a 1 year f/u. Patient is a poor historian and I am unable to figure out when her headaches started. She describes the headaches as left sided or frontal headaches- pressure . she denies any light sensitivty or noise sensitivity , she has nausea when severe. No loss of vision or blurry vision.Now she has rare headaches 1 a month resolves with OTC meds . she usually has a trigger food or stress. she had headaches triggered by doxycycline, tretinoin etc. she also reports dizziness. It started in 2017 . she describes the sensation as being on roller coaster. It was infrequent and now it is frequent with change in head position.she has 1 episode lasting for 1 week /month.she has left ear tinnitus, pulsating noise. she has nausea and changes her head position triggers her dizziness. she went to vestibular therapy twice - was told it was not BPV. [facility] Medical History Cervicalgia Vertigo Alcohol abuse Cocaine abuse H/O pilonidal cyst ADHD (attention deficit hyperactivity disorder) Pseudotumor cerebri syndrome (Idiopathic) normal pressure hydrocephalus Bipolar II disorder Suicidal thoughts PTSD (post-traumatic stress disorder) Depressed Surgical History H/O removal of cyst Family History Other Family history non-contributory Social History Household Members: Family Housing: House Do you presently have visiting nurse or other home services: No Comment: ASLEEP Cigarette Packs Per Day: 10 Cigarettes Per Day: 200.0 Years Smoked: 20 Second Hand Smoke Exposure: No Substance Use Type: Marijuana service: No Sexual orientation: Straight/Heterosexual Physical Exam Vital Signs: Last Vital Signs Pulse 84 11/22/23 07:37 BP 100/74 11/22/23 07:37 Pulse Ox 98 11/22/23 07:37 Oxygen Delivery Method Room Air 11/22/23 07:37 Const General: cooperative, healthy appearing, in distress and anxious Nutritional Appearance: average body habitus Orientation/consciousness: patient oriented x3 Eyes Pupils: Equal, round and reactive pupils present Neuro Other: mild left proptosis . left gaze nystagmus General: patient oriented x3, gait normal, tone normal, moves all extremities and no focal motor deficits Cranial nerves: Yes Equal, round and reactive pupils present, Yes Bilaterally intact EOM present, Yes Nystagmus not present, Yes Normal facial strength present, Yes Midline tongue present and Yes Symmetric palate elevation present Cognition (Neuro): normal cognition Gait exam (Neuro): Normal gait present Deep tendon reflexes (DTR's): Right triceps reflex intensity grade: 1+, Left triceps reflex intensity grade: 1+, Rt Biceps (C5, C6): 1+, Left biceps reflex intensity grade: 1+, Right brachioradialis reflex intensity grade: 1+, Left brachioradialis reflex intensity grade: 1+, Right patellar reflex intensity grade: 1+ and Left patellar reflex intensity grade: 1+ Coordination: [id number] test normal Psych Speech and movement: Pressured speech present Affect: Anxious affect present Results Reviewed Results Reviewed: 2022 - Partially empty sella. As an isolated finding, this is nonspecific but can be seen in the setting of idiopathic intracranial hypertension. 2. 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 3. 8 mm pineal cyst. Assessment & Plan Assessment & Plan (1) Cervicalgia: Code(s): M54.2 - Cervicalgia (2) Vertigo: Code(s): R42 - Dizziness and giddiness Plan MRI brain reviewed Declines LP for now I will try her on topiramate 50mg qhs Talk to psychiatry about mood. Meclizine as needed for vertigo Medications: New meclizine 12.5 mg PO TID PRN 90 tabs 6RF dizziness topiramate 50 mg PO BEDTIME 30 tabs 6RF Coding Level of Care Code Est Pt Level 4 (01186) Diagnoses Cervicalgia M54.2 Vertigo R42
[2023-11-22 07:37] VITALS: BP 100/74; PULSE 84; O2SAT 98
== END 2023-11-22 08:15 | disposition home or self-care (01) ==
PROVIDERS: PCP Internal Medicine; Visit Provider Psychiatry & Neurology Neurology
DX: M54.2 Cervicalgia (principal); R42 Dizziness and giddiness
CPT/HCPCS: 99214

== ENCOUNTER → 2023-11-22 07:28 | Outpatient (BNVA) | payer OTHER, SELFPAY | PROVIDERS: PCP Internal Medicine; Visit Provider Psychiatry & Neurology Neurology | DX: M54.2 Cervicalgia (principal); R42 Dizziness and giddiness | CPT/HCPCS: 99212 ==

== ENCOUNTER 2024-02-07 12:32 | Outpatient (AMB) | payer OTHER, SELFPAY ==
--- NOTE | 2024-02-07 12:36 | A.OFFVIS_ITS ---
Intake Vital Signs 02/07/24 12:38 Height 5 ft 1 in Weight 157 lb 4 oz BMI 29.7 BP 102/62 Blood Pressure Location Rt brachial Position Sitting Respiration 16 Pulse 76 Pulse Source Pulse Oximeter Pulse Oximetry (%) 97 Oxygen Delivery Method Room Air Intake Visit Reasons: 4 mnts f/u appt-LVM Intake Note: Pt presents for follow up for intracranial hypertension and migraines. Brick Cleaner Required: No Allergies doxycycline Allergy (Intermediate, Verified 02/07/24 12:37) Headache haloperidol [From Haldol] Allergy (Intermediate, Verified 02/07/24 12:37) Anxiety metoclopramide [From REGLAN] Allergy (Unknown, Verified 02/07/24 12:37) AGITATION sulfamethoxazole [From BACTRIM] Allergy (Unknown, Verified 02/07/24 12:37) STOMACH UPSET trimethoprim [From BACTRIM] Allergy (Unknown, Verified 02/07/24 12:37) STOMACH UPSET Medication List - Last Reconciled 02/07/24 by Madhavi Walton MD ibuprofen 400 mg PO Q6H PRN 30 days lorazepam 1 mg PO DAILY PRN lorazepam 0.5 mg PO TID 30 days magnesium oxide 400 mg PO BEDTIME meclizine 12.5 mg PO TID PRN sertraline (Zoloft) 25 mg PO DAILY topiramate 50 mg PO BEDTIME HPI HPI Comments History of Present Illness Details 43y/o female comes for [facility] up of [facility] ign intracranial hypertension and migraines, neck pain. she did not start topiramate as her headaches resolved prior to picking her prescription up.she has mild on and off dizziness. Her mood is better. she has irregular periods and hot flashes and waiting to see ObGyn she recently saw ophthalmology - no papilledema , was seen by retina specialist- scheduled for laser treatment- lattice degeneration. History from initial visit- she was diagnosed with intracranial hypertension in - had Lumbar puncture , was on diamox which she was non compliant initially and then restarted. But during her visit last week he stopped as her headaches have resolved. As per Dr. Smith note her opening pressure was 34 about 3 years ago.3-4 years ago she had vision changes was seen by retina specialist - diagnosed with papilledema and then started seeing Lucien Whittington.In February 2023 - she had eye appointment - there was no papilledema and has a 1 year f/u. Patient is a poor historian and I am unable to figure out when her headaches started. She describes the headaches as left sided or frontal headaches- pressure . she denies any light sensitivty or noise sensitivity , she has nausea when severe. No loss of vision or blurry vision.Now she has rare headaches 1 a month resolves with OTC meds . she usually has a trigger food or stress. she had headaches triggered by doxycycline, tretinoin etc. she also reports dizziness. It started in 2018 . she describes the sensation as being on roller coaster. It was infrequent and now it is frequent with change in head position.she has 1 episode lasting for 1 week /month.she has left ear tinnitus, pulsating noise. she has nausea and changes her head position triggers her dizziness. she went to vestibular therapy twice - was told it was not BPV. [facility] Medical History Cervicalgia Vertigo Alcohol abuse Cocaine abuse H/O pilonidal cyst ADHD (attention deficit hyperactivity disorder) Pseudotumor cerebri syndrome (Idiopathic) normal pressure hydrocephalus Bipolar II disorder Suicidal thoughts PTSD (post-traumatic stress disorder) Depressed Surgical History H/O removal of cyst Family History Other Family history non-contributory Social History Household Members: Family Housing: House Do you presently have visiting nurse or other home services: No Comment: ASLEEP Cigarette Packs Per Day: 10 Cigarettes Per Day: 200.0 Years Smoked: 20 Second Hand Smoke Exposure: No Substance Use Type: Marijuana service: No Sexual orientation: Straight/Heterosexual Physical Exam Vital Signs: Last Vital Signs Pulse 76 02/07/24 12:38 Resp 16 02/07/24 12:38 BP 102/62 02/07/24 12:38 Pulse Ox 97 02/07/24 12:38 Oxygen Delivery Method Room Air 02/07/24 12:38 BMI result Body Mass Index 29.7 Const General: cooperative, healthy appearing, in distress and anxious Nutritional Appearance: average body habitus Orientation/consciousness: patient oriented x3 Eyes Pupils: Equal, round and reactive pupils present Neuro Other: mild left proptosis . left gaze nystagmus General: patient oriented x3, gait normal, tone normal, moves all extremities and no focal motor deficits Cranial nerves: Yes Equal, round and reactive pupils present, Yes Bilaterally intact EOM present, Yes Nystagmus not present, Yes Normal facial strength present, Yes Midline tongue present and Yes Symmetric palate elevation present Cognition (Neuro): normal cognition Gait exam (Neuro): Normal gait present Coordination: [id number] test normal Assessment & Plan Assessment & Plan (1) Migraine: Code(s): G43.909 - Migraine, unspecified, not intractable, without status migrainosus (2) Cervicalgia: Code(s): M54.2 - Cervicalgia Plan MRI brain reviewed Declines LP for now PT for vertigo and neck pain Meclizine as needed for vertigo Orders: Orders PT Evaluation and Treatment Today R42 - Dizziness and giddiness PT Evaluation and Treatment Today M54.2 - Cervicalgia Coding Level of Care Code Est Pt Level 4 (99775) Diagnoses Migraine G43.909 Cervicalgia M54.2
[2024-02-07 12:38] VITALS: BP 102/62; PULSE 76; RESP 16; O2SAT 97; BMI 29.7
== END 2024-02-07 13:03 | disposition home or self-care (01) ==
PROVIDERS: PCP Internal Medicine; Visit Provider Psychiatry & Neurology Neurology
DX: G43.909 Migraine, unspecified, not intractable, without status migrainosus (principal); M54.2 Cervicalgia
CPT/HCPCS: 99214

== ENCOUNTER → 2024-02-07 12:32 | Outpatient (BNVA) | payer OTHER, SELFPAY | PROVIDERS: PCP Internal Medicine; Visit Provider Psychiatry & Neurology Neurology | DX: G43.909 Migraine, unspecified, not intractable, without status migrainosus (principal); M54.2 Cervicalgia | CPT/HCPCS: 99212 ==

== ENCOUNTER 2024-08-07 12:31 | Outpatient (AMB) | payer OTHER, SELFPAY ==
--- NOTE | 2024-08-07 12:32 | MHC.OFFVIS ---
Vital Signs 08/07/24 12:34 Height 5 ft 1 in Weight 156 lb 4 oz BMI 29.5 BP 94/66 Blood Pressure Location Rt brachial Position Sitting Respiration 16 Pulse 71 Pulse Source Pulse Oximeter Pulse Oximetry (%) 98 Oxygen Delivery Method Room Air Intake Visit Reasons: 6 mo f/u Intake Note: Pt presents to the office for a 6 month follow up for cervicalgia. Medical Records Director Required: No Allergies doxycycline Allergy (Intermediate, Verified 08/07/24 12:33) Headache haloperidol [From Haldol] Allergy (Intermediate, Verified 08/07/24 12:33) Anxiety metoclopramide [From REGLAN] Allergy (Unknown, Verified 08/07/24 12:33) AGITATION sulfamethoxazole [From BACTRIM] Allergy (Unknown, Verified 08/07/24 12:33) STOMACH UPSET trimethoprim [From BACTRIM] Allergy (Unknown, Verified 08/07/24 12:33) STOMACH UPSET Medication List - Last Reconciled 08/07/24 by Madhavi Walton MD ibuprofen 400 mg PO Q6H PRN 30 days lorazepam 1 mg PO DAILY PRN lorazepam 0.5 mg PO TID 30 days magnesium oxide 400 mg PO BEDTIME meclizine 12.5 mg PO TID PRN sertraline (Zoloft) 25 mg PO DAILY topiramate 50 mg PO BEDTIME HPI Comments Details: 44y/o female comes for folllow up of benign intracranial hypertension and migraines, neck pain.she is doing well she did not start topiramate. she recently had appointment with esters and emulsifiers supervisor and is doing well. she had laser tretament with lattice deg. she did not PT for neck or dizziness Her mood is better. she has irregular periods and hot flashes and waiting to see ObGyn. History from initial visit- she was diagnosed with intracranial hypertension in - had Lumbar puncture , was on diamox which she was non compliant initially and then restarted. But during her visit last week he stopped as her headaches have resolved. As per Dr. Smith note her opening pressure was 34 about 3 years ago.3-4 years ago she had vision changes was seen by retina specialist - diagnosed with papilledema and then started seeing Lucien Whittington.In February 2023 - she had eye appointment - there was no papilledema and has a 1 year f/u. Patient is a poor historian and I am unable to figure out when her headaches started. She describes the headaches as left sided or frontal headaches- pressure . she denies any light sensitivty or noise sensitivity , she has nausea when severe. No loss of vision or blurry vision.Now she has rare headaches 1 a month resolves with OTC meds . she usually has a trigger food or stress. she had headaches triggered by doxycycline, tretinoin etc. she also reports dizziness. It started in 2018 . she describes the sensation as being on roller coaster. It was infrequent and now it is frequent with change in head position.she has 1 episode lasting for 1 week /month.she has left ear tinnitus, pulsating noise. she has nausea and changes her head position triggers her dizziness. she went to vestibular therapy twice - was told it was not BPV. [facility] Medical History Cervicalgia Vertigo Alcohol abuse Cocaine abuse H/O pilonidal cyst ADHD (attention deficit hyperactivity disorder) Pseudotumor cerebri syndrome (Idiopathic) normal pressure hydrocephalus Bipolar II disorder Suicidal thoughts PTSD (post-traumatic stress disorder) Depressed Surgical History H/O removal of cyst Family History Other Family history non-contributory Social History Household Members: Family Housing: House Do you presently have visiting nurse or other home services: No Comment: ASLEEP Cigarette Packs Per Day: 10 Cigarettes Per Day: 200.0 Years Smoked: 20 Second Hand Smoke Exposure: No Substance Use Type: Marijuana service: No Sexual orientation: Straight/Heterosexual Physical Exam Vital Signs: Last Vital Signs Pulse 71 08/07/24 12:34 Resp 16 08/07/24 12:34 BP 94/66 08/07/24 12:34 Pulse Ox 98 08/07/24 12:34 Oxygen Delivery Method Room Air 08/07/24 12:34 BMI result Body Mass Index 29.5 Const General: cooperative, healthy appearing, in distress and anxious Nutritional Appearance: average body habitus Orientation/consciousness: patient oriented x3 Eyes Pupils: Equal, round and reactive pupils present Neuro Other: mild left proptosis . left gaze nystagmus General: patient oriented x3, gait normal, tone normal, moves all extremities and no focal motor deficits Cranial nerves: Yes Equal, round and reactive pupils present, Yes Bilaterally intact EOM present, Yes Nystagmus not present, Yes Normal facial strength present, Yes Midline tongue present and Yes Symmetric palate elevation present Cognition (Neuro): normal cognition Gait exam (Neuro): Normal gait present Coordination: [id number]-le-aowz test normal Assessment & Plan Assessment & Plan (1) Migraine: Code(s): G43.909 - Migraine, unspecified, not intractable, without status migrainosus Category: Medical Qualifiers: Migraine type: unspecified Status migrainosus presence: without status migrainosus Intractability: not intractable Qualified Code(s): G43.909 - Migraine, unspecified, not intractable, without status migrainosus (2) Cervicalgia: Code(s): M54.2 - Cervicalgia Category: Medical Plan Declines LP for now PT for vertigo and neck pain Meclizine as needed for vertigo Magnesium 400mg qhs F/u ophthalmology Medications: Refilled magnesium oxide 400 mg PO BEDTIME 30 tabs 6RF Coding Level of Care Code Est Pt Level 4 (43080) Complex EM visit Add On G2211 Diagnoses Migraine without status migrainosus, not intractable, unspecified migraine type G43.909 Migraine type: unspecified Status migrainosus presence: without status migrainosus Intractability: not intractable Cervicalgia M54.2
[2024-08-07 12:34] VITALS: BP 94/66; PULSE 71; RESP 16; O2SAT 98; BMI 29.5
== END 2024-08-07 12:59 | disposition home or self-care (01) ==
PROVIDERS: PCP Internal Medicine; Visit Provider Psychiatry & Neurology Neurology
DX: G43.909 Migraine, unspecified, not intractable, without status migrainosus (principal); M54.2 Cervicalgia
CPT/HCPCS: 99214; G2211

== ENCOUNTER → 2024-08-07 12:31 | Outpatient (BNVA) | payer OTHER, SELFPAY | PROVIDERS: PCP Internal Medicine; Visit Provider Psychiatry & Neurology Neurology | DX: G43.909 Migraine, unspecified, not intractable, without status migrainosus (principal); M54.2 Cervicalgia | CPT/HCPCS: 99212 ==

== ENCOUNTER 2025-08-06 10:54 | Outpatient (AMB) | payer OTHER, SELFPAY ==
--- OUTSIDE RECORDS SUMMARY | 2024-12-26 06:30 | XMS_ITS ---
Author Organization [facility] Address [address] [place] [address] Care Team Providers Care Fur Cutting Machine Operator Name Role Phone Derrell Denson MD Primary Care Provider Unavail able Analia Richardson Unavailable [phone] Flex Fournier Unavailable [phone] Allergies Allergen (clinical drug ingredient) Drug/Non Drug Allergy documented on EMR Reaction Allergy Type Onset Date Status Cyclins cyclins (uncoded) Unknown Allergy Ac tive Haldol Unknown Drug Allergy Active metoclopramide Reglan Unknown Drug Allergy Ac tive Medications Medication SIG (Take, Route, Frequency, Duration) Notes Start Date End Date Status Zoloft 25 MG 1 tablet Orally Once a day Active Ativan 2 MG 1 tablet at bedtime as needed Orally Once a day Active Social History Tobacco Use: Social History Observation Description Date Details (start date - stop date) Current Smoker NA - NA Tobacco use other than smoking: Question Answer Notes Are you an other tobacco user? No Tobacco Control (Standard) Question Answer Notes Tobacco use: Current smoker AUDIT-C (Standard) Question Answer Notes Did you have a drink contain ing alcohol in the past year? Yes How often did you have six o r more drinks on one occasion in the past year? Less than monthly (1 point) How many drinks did you have on a typical day when you were drinking in the past year? 1 or 2 drinks (0 point) How often did you have a dri nk containing alcohol in the past year? Monthly or less (1 point) Points 2 Interpretation Negative Encounters Encounter [facility] Date [facility] [place] [address] 12/26/2024 Flex Fournier Plan Of Treatment Next Appt Details Provider Name:Analia Richardson , 09/05/2025 11:15:00 AM, [address], [place], [address], Progress Notes * Jeanette ORTIZDOB:1980 (45 yo F)Acc No.[id number]:12/26/2024 Progress Notes Patient: Jeanette BRIGGS Provider: Desiree Fournier D.P.M. :1980 A ge:44 Y S ex:Female Date:12/26/2024 Address:[address] [place] [address] [address] [place], [place], [place] Pcp:Derrell Denson MD Subjective: * Chief Complaints: * * ROS: G eneral/Constitutional: Nausea d enies. V omiting d enies. H farzad Thirst d enies. L oss appetite d enies. C hills d enies. F atigue d enies.?Fever d enies. N ight Sweats d enies. U nexplained weight loss d enies. U nexplained weight gain d enies. H EENTM: Dentures d enies. D izziness a dmits. G lasses/contacts a dmits. R etinopathy d enies. B lurred/double vision d enies. T MJ?denies. D ischarge/drainage d enies. I mplants d enies. S ore throat d enies. D ental implants d enies. H celia of hearing d enies. D ifficulty chewing/swallowing/speaking d enies. N ose bleeds d enies. S ore mouth d enies. ? R espiratory: On Oxygen d enies. P neumonia/pleurisy d enies.?Bronchitis d enies. E mphysema d enies. C oughing d enies. C ough blood?denies. S hortness of breath d enies. W heezing d enies. C ardiovascular: Pacemaker d enies. M SPANISH LITERATURE PROFESSOR d enies. W PW d enies. C HF d enies. H eart attack d enies. S eptal defect d enies. R apid beat d enies. C hest pain d enies. A trial Fib. d enies. M urmur/Palpitations d enies. G astrointestinal: Hemorrhoids d enies. S tomach/Abdominal pain d enies. D ark blood stool d enies. I rritable bowel d enies. C onstipation d enies. D iarrhea d enies. H ematology: Swelling d enies. C lots d enies. V aricose Veins d enies. B ruising d enies. B leeding problem d enies. G enitourinary: Blood urine d enies. F requent/Painfu/urination/bladder control a dmits. K idney stones d enies. I nfection (UTI) d enies. N ephropathy d enies. s ex trans dis (STD) d enies. P rostate d enies. M usculoskeletal: Hammertoes d enies. B unions a dmits. B ack Pain d enies. M uscle Cramps/ Resting d enies. M uscle cramps / walking d enies.?Generalized aches and pains a dmits. W eakness d enies. I nteg.: Souza d enies. S cars d enies. C orns/calluses?admits. I ngrown nails a dmits. P ainful nails d enies. O pen Sores d enies. R ashes d enies. N eurologic: Difficulty sleeping a dmits. B rain disorder d enies. N umbness a dmits. B alance trouble d enies. C onfusion a dmits. F ainting/blackouts d enies. T ingling a dmits. T remors d enies. * Medical History: A nxiety, Back,Hip,and Knee pain, CAD (Cholesterol), Headaches/Migraines, Psychiatric disorder, Chicken pox, Depression. * Family History: M other: alive, stroke, diagnosed with Unspecified essential hypertension, Unspecified heart disease. F ather: alive, diagnosed with Other malignant neoplasm of unspecified site, Unspecified cerebral artery occlusion with cerebral infarction. P aternal Grand Mother: diagnosed with Unspecified heart disease, Unspecified cerebral artery occlusion with cerebral infarction. P aternal Grand Father: diagnosed with Diabetic - NIDDM. * Social History: T obacco Use: T obacco use other than smoking A re you an other tobacco user? N o Tobacco Control (Standard) T obacco use: C urrent smoker D rugs/Alcohol: D rugs H ave you used drugs other than those for medical reasons in the past 12 months? Y es M arijuana? Y es M iscellaneous: C affeine: no. Children: no. Exercise: yes, dance, sing. Marital status: . D rug/Alcohol: A LUL-C (Standard) D id you have a drink containing alcohol in the past year? Y es H ow often did you have six or more drinks on one occasion in the past year? L ess than monthly (1 point) H ow many drinks did you have on a typical day when you were drinking in the past year? 1 or 2 drinks (0 point) H ow often did you have a drink containing alcohol in the past year? M onthly or less (1 point) P oints 2 I nterpretation N egative * Medications: T aking Zoloft 25 MG Tablet 1 tablet Orally Once a day , Taking Ativan 2 MG Tablet 1 tablet at bedtime as needed Orally Once a day * Allergies: R eglan, Haldol, cyclins. Objective: * Vitals: Assessment: Plan: * Treatment: * Images: * The named appointment provid er may or may not be the originator of this progress note, and it is not deemed complete until electronically signed by the appointment provider. Sign off status: Pending * Provider: Desiree Fournier, D.P.M. Date: 0 12/26/2024 Generated for Shazia chandler/Alma Delia/Reginaitting on: 0 08/06/2025 01:58 PM EDT
--- OUTSIDE RECORDS SUMMARY | 2025-02-12 06:30 | XMS_ITS ---
Author Organization [facility] Address [address] [place] [address] Care Team Providers Care Golf Course Superintendent Name Role Phone Derrell Denson MD Primary Care Provider Unavail able DylanAnalia Unavailable [phone] Encounters Encounter Location Date Provider Diagnosis [facility] [address] [place] [address] 02/12/2025 Analia Richardson Plan Of Treatment Next Appt Details Provider Name:Analia Richardson , 09/05/2025 11:15:00 AM, [address] [facility], [place], [address], Progress Notes * DIANAJeanetteDOB:1980 (45 yo F)Acc No.[id number]:02/12/2025 Progress Notes Patient: Jeanette BRIGGS Provider: Ronni Richardson DPM :1980 A ge:44 Y S ex:Female Date:02/12/2025 Address:[address] [id number] Pcp:Derrell Denson MD Subjective: * Chief Complaints: * * Medical History: Objective: * Vitals: Assessment: Plan: * Treatment: * Images: * The named appointment provid er may or may not be the originator of this progress note, and it is not deemed complete until electronically signed by the appointment provider. Sign off status: Pending * Provider: Ronni Richardson DPM Date: 0 02/12/2025 Generated for Printi ng/Faxing/eTransmitting on: 0 08/06/2025 01:59 PM EDT
--- NOTE | 2025-08-06 10:48 | MHC.OFFVIS ---
Intake Visit Reasons: 1yr follow up Intake Note: Follow up Migraine, unspecified, not intractable, without status migrainosus, Cervicalgia Medical Officer Psychiatry Required: No Accompanied by: Self / Same As Patient Allergies doxycycline Allergy (Intermediate, Verified 08/06/25 10:50) Headache haloperidol (From Haldol) Allergy (Intermediate, Verified 08/06/25 10:50) Anxiety metoclopramide (From REGLAN) Allergy (Unknown, Verified 08/06/25 10:50) AGITATION sulfamethoxazole (From BACTRIM) Allergy (Unknown, Verified 08/06/25 10:50) STOMACH UPSET trimethoprim (From BACTRIM) Allergy (Unknown, Verified 08/06/25 10:50) STOMACH UPSET HPI Comments Details: 45y/o female calls for folllow up of benign intracranial hypertension and migraines, neck pain.she is doing well .No migraines she did not start topiramate. she recently had appointment with wind commissioning technician and is doing well. she had laser tretament with lattice deg. she did not PT for neck or dizziness Her mood is better. wt 154 History from initial visit- she was diagnosed with intracranial hypertension in - had Lumbar puncture , was on diamox which she was non compliant initially and then restarted. But during her visit last week he stopped as her headaches have resolved. As per Dr. Smith note her opening pressure was 34 about 3 years ago.3-4 years ago she had vision changes was seen by retina specialist - diagnosed with papilledema and then started seeing Lucien Whittington.In February 2023 - she had eye appointment - there was no papilledema and has a 1 year f/u. Patient is a poor historian and I am unable to figure out when her headaches started. She describes the headaches as left sided or frontal headaches- pressure . she denies any light sensitivty or noise sensitivity , she has nausea when severe. No loss of vision or blurry vision.Now she has rare headaches 1 a month resolves with OTC meds . she usually has a trigger food or stress. she had headaches triggered by doxycycline, tretinoin etc. she also reports dizziness. It started in 2018 . she describes the sensation as being on roller coaster. It was infrequent and now it is frequent with change in head position.she has 1 episode lasting for 1 week /month.she has left ear tinnitus, pulsating noise. she has nausea and changes her head position triggers her dizziness. she went to vestibular therapy twice - was told it was not BPV. [facility] Medical History Cervicalgia Vertigo Alcohol abuse Cocaine abuse H/O pilonidal cyst ADHD (attention deficit hyperactivity disorder) Pseudotumor cerebri syndrome (Idiopathic) normal pressure hydrocephalus Bipolar II disorder Suicidal thoughts PTSD (post-traumatic stress disorder) Depressed Surgical History H/O removal of cyst Family History Other Family history non-contributory Social History Household Members: Family Housing: House Do you presently have visiting nurse or other home services: No Comment: ASLEEP Cigarette Packs Per Day: 10 Cigarettes Per Day: 200.0 Years Smoked: 20 Second Hand Smoke Exposure: No Substance Use Type: Marijuana service: No Sexual orientation: Straight/Heterosexual Physical Exam Const General: cooperative, healthy appearing, comfortable and no acute distress Orientation/consciousness: patient oriented x3 Neuro General: patient oriented x3 and moves all extremities Cranial nerves: Yes Nystagmus not present and Yes Normal facial strength present Cognition (Neuro): normal cognition Telehealth Telehealth Telehealth Platform: [facility] Location of provider rendering services: practice address Location of patient: address on file Patient Identification confirmed using: Name, : Yes Telehealth method: video Patient verbally consented to treatment: Yes Patient verbally consented to billing insurance company: Yes Patient informed of any privacy concerns related to visit: Yes Minutes spent on Phone/Video with Pt.: 16 Assessment & Plan Assessment & Plan (1) Migraine: Code(s): G43.909 - Migraine, unspecified, not intractable, without status migrainosus Category: Medical Qualifiers: Migraine type: unspecified Status migrainosus presence: without status migrainosus Intractability: not intractable Qualified Code(s): G43.909 - Migraine, unspecified, not intractable, without status migrainosus (2) Cervicalgia: Code(s): M54.2 - Cervicalgia Category: Medical Plan Magnesium 400mg qhs F/u ophthalmology Coding Level of Care Code Tele Est Pt Level 4 (66869) Diagnoses Migraine without status migrainosus, not intractable, unspecified migraine type G43.909 Migraine type: unspecified Status migrainosus presence: without status migrainosus Intractability: not intractable Cervicalgia M54.2
--- OUTSIDE RECORDS SUMMARY | 2025-08-06 13:59 | XMS_ITS | Clinical Summary ---
Author Organization [facility] it Address [address] [place] [address] Care Team Providers Care Software Engineering Associate Manager Name Role Phone Derrell Denson MD Primary Care Provider [phone] Surgical History Surgery Date Site/Laterality Comments OTHER SURGICAL HISTORY PROCEDURE: HISTORY OTHER; COMMENT: Pilonidal cyst repair OTHER SURGICAL HISTORY 09/07/2020 PROCEDURE: HISTORICAL D&C BREAST BIOPSY 08/29/2018 Right PROCEDURE: BX BREAST; PERC NEEDLE CORE W/IMAG GUID; COMMENT: b9 OTHER SURGICAL HISTORY 11/2020 PROCEDURE: ---- OTHER ----; COMMENT: inclusion cyst removal Medical History Medical History Date Comments PTSD (post-traumatic stress disorder) DX:PTSD (post-traumatic stress disorder) ADHD (attention deficit hype ractivity disorder) DX:ADHD (attention deficit hyperactivity disorder) Substance abuse ([facility] V24 , [facility] V28) DX:Substance abuse ([facility]) Alcohol abuse DX:Alcohol abuse Anxiety 07/21/2014 DX:Anxiety; [facility] Therapist: Meilssa 3 week inpatient admission 07/2015 inpatient at [place] post suicide attempt Borderline personality disor musa ([facility] V24, [facility] V28) 07/27/2015 DX:Borderline personality d isorder ([facility]) Elevated DHEA 07/25/2009 DX:Elevated DHEA ; COMMENT: 06/21 DHEA-S 314 (range 60-230) on outside lab by Dr. Tran Hyperlipidemia 06/12/2015 DX:Hyperlipidemi a Major depression 10/09/2013 DX:Major depres kellie; COMMENT: 2012 inpatient at [place] post suicide attempt. Followed at [facility]: Dr. Jean Baptiste and Therapist: Melissa 3 week inpatient admission 07/2015 Obesity (BMI 30-39.9) 05/14/2009 DX:Obesity (BMI 30-39.9) Thyroid nodule 02/18/2016 DX:Thyroid nodul e Tobacco use disorder 05/14/2009 DX:Tobacco use disorder Historical Medical DX 07/10/2011 DX:ASCUS o n Pap smear; COMMENT: Endocervical curettage 06/23 normal (Dr Wagner) Hyperandrogenism 03/27/2017 DX:Hyperandroge nism; COMMENT: GERD (gastroesophageal reflux disease) DX:GERD (gastroesophageal reflux disease) Epigastric pain DX:Epigastric pa in Nausea DX:Nausea Anxiety DX:Anxiety Straining with stools DX:Straini ng with stools Abdominal pain DX:Abdominal naomie n Family History Medical History Relation Name Comments Lymphoma Father Nonhodkgins Heart attack Maternal Grandfather Heart attack Mother Hypertension Mother Stroke Mother Diabetes Paternal Grandfather Other: AVM - brain Sister Breast cancer Neg Hx Relation Name Status Comments Father Alive Presumed health y, smoker Maternal Grandfather CO Maternal Grandmother Alzheim ers Mother Alive Mental health i ssues, Hx CO Paternal Grandfather Paternal Grandmother Alive Sister Alive Brain blood tamiko t (AVM), panic attacks Social History Tobacco Use Types Packs/Day Years Used Date Smoking Tobacco: Every Day Cigarettes Smokeless Tobacco: Never Alcohol Use Standard Drinks/Week Comments No 0 (1 standard drink = 0.6 oz pur e alcohol) Comments Unknown Sex and Gender Information Value Date Recorded Sex Assigned at Not on file Legal Sex Female 9:59 AM EST Gender Identity Not on file Sexual Orientation Not on file Obstetrics History Last Filed Vital Signs Vital Sign Reading Time Taken Comments Blood Pressure 99/72 11/16/2023 2:51 PM EST Pulse 65 11/16/2023 2:51 PM EST Temperature - - Respiratory Rate - - Oxygen Saturation - - Inhaled Oxygen Concentration - - Weight 73.9 kg (163 lb) 11/16/2023 2:51 PM EST Height 154.9 cm (5' 1 ) 11/16/2023 2:51 PM EST Body Mass Index 30.8 11/16/2023 2:51 PM EST Plan of Treatment Health Maintenance Due Date Last Done Comments Pneumococcal Vaccine: Pediatrics (0 to 5 Years) and At-Risk Patients (6 to 49 Years) (1 of 2 - PCV) 1999 Cholesterol Screening (Lipid Panel) 10/22/2022 Colorectal Cancer Screening: Colonoscopy 10/22/2022 HIV Screening 10/22/2022 Hepatitis C Screening 10/22/2022 Social Influencers of Health Screening 10/22/2022 Hepatitis A Vaccines (3 of 3 - Hep A Twinrix risk 3-dose series) 12/14/2022 07/14/2022, 01/31/2022 Cervical Cancer Screening: Pap Smear 08/12/2024 08/12/2021, 04/05/2018 Depression Screening 11/13/2024 Breast Cancer Screening 02/01/2025 02/02/20, 06/22/2022, 01/24/2022, Additional history exists COVID-19 Vaccine (3 - 2024- season) 2025 10/05/2021, 09/14/2021 Influenza Vaccine (#1) 2025 DTaP,Tdap,and Td Vaccines (2 - Td or Tdap) 04/25/2028 04/25/2018 RSV Immunization Adult Patients (1 - 1-dose 75+ series) 2055 Hepatitis B Vaccines Completed 07/14/2022, 03/03/2022, 01/31/2022 HIB Vaccines Aged Out No longer eligi ble based on patient's age to complete this topic HPV Vaccines Aged Out No longer eligi ble based on patient's age to complete this topic IPV Vaccines Aged Out No longer eligi ble based on patient's age to complete this topic MMR Vaccines Aged Out No longer eligi ble based on patient's age to complete this topic Meningococcal ACWY Vaccine Aged Out N o longer eligible based on patient's age to complete this topic Meningococcal B Vaccine Aged Out No l onger eligible based on patient's age to complete this topic RSV Immunization Patients Under 20 months Aged Out No longer eligible based on patient's age to complete this topic Varicella Vaccines Aged Out No longer eligible based on patient's age to complete this topic Procedures Procedure Name Priority Date/Time Associated Diagnosis Comments SCREENING MAMMOGRAPHY BI 2-VIEW BREAST INC CAD Routine 02/01/2023 11:42 AM EDT Encounter for screening mammogram for malignant neoplasm of breast PAP SMEAR Routine 08/12/2021 from Last 3 Months or Most Recently Relevant to Health Maintenance Results * SCREENING MAMMOGRAPHY BI 2-VIEW BREAST INC CAD (02/01/2023 11:42 AM EDT) Anatomical Region Laterality Modality Radiographic Luz ging 01/24/2022 4:13 PM EDT Narrative 02/01/2023 12:08 PM EDT This is a summary report. The complete report is available in the patient's medical record. If you cannot access the medical record, please contact the sending organization for a detailed fax or copy. Full field digital screening mammography, using both 2D mammography and tomosynthesis, reviewed with CAD and compared to previous. The breasts are composed of fatty and fibroglandular tissue. No suspicious mass, architectural distortion or suspicious calcifications are identified. IMPRESSION: : No mammographic evidence of malignancy. BIRADS 1-Negative; N. 5 year breast cancer risk assessment 1.2 % Lifetime breast cancer risk assessment 14.1 % Breast cancer risk category Low (<15%) Procedure Note Quincy Gant MD - 12/18/2023 This is a summary report. The complete report is available in thepatient's medical record. If you cannot access the medical record, pleasecontact the sending organization for a detailed fax or copy. Full field digital screening mammography, using both 2D mammography andtomosynthesis, reviewed with CAD and compared to previous. The breastsare composed of fatty and fibroglandular tissue. No suspicious mass,architectural distortion or suspicious calcifications are identified. IMPRESSION: : No mammographic evidence of malignancy. BIRADS 1-Negative; N. 5 year breast cancer risk assessment 1.2 % Lifetime breast cancer risk assessment 14.1 % Breast cancer risk category Low (<15%) us Derrell Denson MD IMG XR PROCEDURES Final Result * Pap smear (08/12/2021) 08/12/2021 Narrative HISTORICAL TESTING LAB RESULTING AGENCY - 08/26/2021 1:16 PM EDT [id number] THINPREP PAP, IMAGED: NEGATIVE FOR SQUAMOUS INTRAEPITHELIAL LESION AND MALIGNANCY . ABUNDANT RED BLOOD CELLS ARE PRESENT. MARY ESPINOZA , CT(ASCP) (CASE ELECTRONICALLY SIGNED 08 26 2021) RESULT OF APTIMA HIGH RISK HPV ASSAY: HIGH RISK HPV: NEGATIVE (SEROTYPES 16,18,31,33,35,39,45,51,52,56,58,59,66,68) COMPLETED ON 2021-08-16 ADEQUACY: SATISFACTORY ENDOCERVICAL/TRANSFORMATION ZONE COMPONENT PRESENT. SOURCE: THINPREP PAP HPV ANY DX: REFLEX 16 AND 18, CERVICAL, IMAGED CLINICAL INFORMATION: HPV ANY DIAGNOSIS. HORMONES, Z12.4 us Michelle Carpenter [facility] CYTOLOGY ORDERA BLES Final Result HISTORICAL TESTING LAB RESULTING AGENCY from Last 3 Months or Most Recently Relevant to Health Maintenance Care Teams Software Engineering Associate Manager Relationship Specialty Start Date End Date eDrrell Denson MD [facility] [place] [address] PCP - General 06/07/23
--- OUTSIDE RECORDS SUMMARY | 2025-08-06 13:59 | XMS_ITS | Clinical Summary ---
Author Organization [facility] Address [address] [place] [address] Care Team Providers Care Unhairing Inspector Name Role Phone Derrell Denson MD Primary Care Provider [phone] Allergies Active Allergy Reactions Criticality Noted Date Comments Diphenhydramine-Apap (Sleep) 020 Metoclopramide 11/10/2020 Medications Medication Sig Dispensed Refills Start Date End Date Status Acetaminophen 500 MG coapsule Take by mouth. 0 Active lurasidone HCl (Latuda) 20 MG TABS tablet Take by mouth Every evening with dinner. 0 Active LORazepam (ATIVAN) 1 MG tablet Take 1 mg by mouth every 6 (six) hours as needed. 0 Active nicotine (NICODERM CQ) 7 MG/24HR Place 1 patch onto the skin daily. 0 Active OXcarbazepine (TRILEPTAL) 600 MG tablet Take 600 mg by mouth 2 (two) times a day. 0 Active Vit-Fe Fumarate-FA ( S PO) Take by mouth. 0 Active prazosin (MINIPRESS) 1 MG capsule Take 1 mg by mouth every night at bedtime. 0 Active Probiotic Product (PROBIOTIC ADVANCED PO) Take by mouth. 0 Active QUEtiapine (SEROquel) 25 MG tablet Take 25 mg by mouth every night at bedtime. 0 Active docusate sodium (Colace) 100 MG capsule Take 100 mg by mouth 2 (two) times a day. 0 Active Turmeric 500 MG CAPS Take by mouth. 0 Active Active Problems Problem Noted Date Diagnosed Date Bone lesion 11/10/2020 Overview: of T12 vertebra, incidental finding 6 mm Leukocytosis 11/10/2020 Pseudotumor cerebri 11/10/2020 Social History Tobacco Use Types Packs/Day Years Used Date Smoking Tobacco: Never Assessed Sex and Gender Information Value Date Recorded Sex Assigned at Not on file Gender Identity Not on file Sexual Orientation Not on file Last Filed Vital Signs Vital Sign Reading Time Taken Comments Blood Pressure 99/57 11/10/2020 3:09 PM EST Pulse 80 11/10/2020 3:09 PM EST Temperature 36.8 C (98.2 F) 11/10/2020 3:09 PM EST Respiratory Rate - - Oxygen Saturation - - Inhaled Oxygen Concentration - - Weight 94.8 kg (209 lb) 11/10/2020 3:09 PM EST Height 156.5 cm (5' 1.6 ) 11/10/2020 3:09 PM EST Body Mass Index 38.72 11/10/2020 3:09 PM EST Plan of Treatment Health Maintenance Due Date Last Done Comments Hepatitis B Vaccines (1 of 3 - 3-dose series) 1980 Hepatitis C Screening 1980 COVID-19 Vaccine (#1) 01/26/1981 Depression Screening 1992 Preventative Health Evaluation 1998 DTap / Tdap / Td (1 - Tdap) 1999 Cervical Cancer Screening (P ap Smear) 2001 Influenza Vaccine (#1) 2025 Colon Cancer Screening (Colonoscopy) 2025 Pneumococcal Vaccine Aged Out No long er eligible based on patient's age to complete this topic RSV Ped < 20 months Aged Out No longe r eligible based on patient's age to complete this topic Care Teams Unhairing Inspector Relationship Specialty Start Date End Date Derrell Denson MD [address] [place] [address] PCP - General Internal Medicine 10/28/20
--- OUTSIDE RECORDS SUMMARY | 2025-08-06 13:59 | XMS_ITS | Patient Health Record ---
[facility] Organization [facility] Address [address] [facility] [place] [address] Care Team Providers Care System Architect Name Role Phone Derrell Denson MD Primary Care Provider Unavail able Black, Analia Unavailable [phone] Flex Fournier Unavailable [phone] Allergies Allergen (clinical drug ingredient) Drug/Non Drug Allergy documented on EMR Reaction Allergy Type Onset Date Status Cyclins cyclins (uncoded) Unknown Allergy Ac tive ketorolac toradol (uncoded) Unknown Allergy Ac tive Haldol Unknown Drug Allergy Active metoclopramide Reglan Unknown Drug Allergy Ac tive Results Component Value Reference Range Notes X ray : Foot, right 3V Reviewed date:01/17/2025 03:11:14 PM Interpretation:See Examination above Performing Lab: Notes/Report: See Examination above Reason For Referral No Information Medications Medication SIG (Take, Route, Frequency, Duration) Notes Start Date End Date Status Ativan 2 MG 1 tablet at bedtime as needed Orally Once a day Active Zoloft 25 MG 1 tablet Orally Once a day Active Ciclopirox 8 % 1 application Flame Planer ally Once a day; Duration: 30 Active Ciclopirox Olamine 0.77 % 1 application Externally Twice a day to skin of feet including between the toes; Duration: 30 days Active Ketoconazole 2 % 1 application Flame Planer ally Once a day; Duration: 30 days 04/11/2025 Active Custom Orthotics as directed 04/11/2025 Active Immunizations Vaccine Route Administration Date Status Comme nts Influenza Unknown 06/20/2025 Refused Social History Tobacco Use: Social History Observation Description Date Details (start date - stop date) Current Smoker NA - NA Tobacco use other than smoking: Question Answer Notes Are you an other tobacco user? No Tobacco Control (Standard) Question Answer Notes Tobacco use: Current smoker How many cigarettes a day do you smoke? 6-10 How soon after you wake up d o you smoke your first cigarette? 6-30 minutes Are you interested in quitting? Thinking about q uitting AUDIT-C (Standard) Question Answer Notes Did you have a drink containing alcohol in the p ast year? No Points 0 Interpretation Negative Vital Signs Heart Rate 67 /min 01/17/2025 Blood pressure diastolic 70 mm Hg 06/20/2025 Height 5ft 1in in 06/20/2025 Blood pressure systolic 112 mm Hg 06/20/2025 Weight 150 lbs 06/20/2025 BMI 28.34 kg/m2 06/20/2025 Procedures Procedure Date Ordered Date Performed Result Body Sit e 73364-YLAVIYB NAIL, -04/11/2025 N/A 24655-Cisv Destruction, -04/11/2025 N/A 57777-GOOCZOL NAIL, -06/20/2025 N/A 10567-Gnlh Destruction, -06/20/2025 N/A Encounters Encounter Location Date Provider Diagnosis [address] [address] 01/17/2025 Analia Black Onychomycosis B35.1 ; Metatarsalgia, right foot M77.41 ; Pain in right toe(s) M79.674 ; Pain in left toe(s) M79.675 ; Tinea pedis of both feet B35.3 ; Pain in right foot M79.671 ; Pain in right ankle and joints of right foot M25.571 and Bursitis of intermetatarsal bursa of right foot M77.[address] [address] 04/11/2025 Analia Black Metatarsalgia, right foot M77.41 ; Pain in left toe(s) M79.675 ; Pain in right toe(s) M79.674 ; Onychomycosis B35.1 ; Tinea pedis of both feet B35.3 ; Pain in right ankle and joints of right foot M25.571 ; Pain in right foot M79.671 ; Bursitis of intermetatarsal bursa of right foot M77.51 and 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 [facility] [address] [place] [address] 06/20/2025 Analia Black Metatarsalgia, right foot M77.41 ; 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 ; Pain in left toe(s) M79.675 ; Pain in right toe(s) M79.674 ; Onychomycosis B35.1 ; Pain in right ankle and joints of right foot M25.571 ; Pain in right foot M79.671 and Bursitis of intermetatarsal bursa of right foot M77.[address] [facility] [address] 11/08/2024 [facility] [address] 12/04/2024 [facility] [address] 12/12/2024 Flex Fournier [facility] [address] [place] [address] 12/12/2024 Flex Fournier [facility] [address] [place] [address] 12/24/2024 [facility] [address] 01/17/2025 [facility] [address] 01/28/2025 Analia Black [facility] [address] 04/11/2025 Analia Black [facility] [address] 06/20/2025 Analia Black Assessments Encounter Date Diagnosis (ICD Code) Assessment Notes Treatment Notes Treatment Clinical Notes Section Notes 01/17/2025 Metatarsalgia, right foot (ICD-10 - M77.41) 01/17/2025 Onychomycosis (ICD-10 - B35.1) 04/11/2025 Metatarsalgia, right foot (ICD-10 - M77.41) 04/11/2025 Pain in left toe(s) (ICD-10 - M79.675) 06/20/2025 Metatarsalgia, right foot (ICD-10 - M77.41) 06/20/2025 Verrucae vulgaris (ICD-10 - B07.9) 06/20/2025 Pain in left toe(s) (ICD-10 - M79.675) 04/11/2025 Pain in right toe(s) (ICD-10 - M79.674) 01/17/2025 Pain in right toe(s) (ICD-10 - M79.674) 04/11/2025 Onychomycosis (ICD-10 - B35.1) 06/20/2025 Pain in right toe(s) (ICD-10 - M79.674) 01/17/2025 Pain in left toe(s) (ICD-10 - M79.675) 06/20/2025 Onychomycosis (ICD-10 - B35.1) 04/11/2025 Tinea pedis of both feet (ICD-10 - B35.3) 01/17/2025 Tinea pedis of both feet (ICD-10 - B35.3) 04/11/2025 Pain in right ankle and joints of right foot (ICD-10 - M25.571) 01/17/2025 Pain in right foot (ICD-10 - M79.671) 06/20/2025 Pain in right ankle and joints of right foot (ICD-10 - M25.571) 04/11/2025 Pain in right foot (ICD-10 - M79.671) 01/17/2025 Pain in right ankle and joints of right foot (ICD-10 - M25.571) 06/20/2025 Pain in right foot (ICD-10 - M79.671) 06/20/2025 Bursitis of intermetatarsal bursa of right foot (ICD-10 - M77.51) 01/17/2025 Bursitis of intermetatarsal bursa of right foot (ICD-10 - M77.51) 04/11/2025 Bursitis of intermetatarsal bursa of right foot (ICD-10 - M77.51) 04/11/2025 Verrucae vulgaris (ICD-10 - B07.9) Plan Of Treatment Pending Test Test Name Order Date 40065-QMTCKZI NAIL, -04/11/2025 93140-WLCCHTF NAIL, -06/20/2025 95302-Tieh Destruction, -06/20/2025 31602-Eheq Destruction, -04/11/2025 Next Appt Details Provider Name:Analia A Dylan , 09/05/2025 11:15:00 AM, [address] [place] [address], [place], [address], Insurance Providers Payer Name Payer Address Payer Phone Subscriber Number Group Number Insured Name Patient Relationship to Insured Coverage Start Date Coverage End Date [facility] [employer] Claims [address] [place] [id number] Self - patient is the insured Medical (General) History Medical History History ICD Code Anxiety Back,Hip,and Knee pain CAD (Cholesterol) Headaches/Migraines Psychiatric disorder Chicken pox Depression
== END 2025-08-06 12:10 | disposition home or self-care (01) ==
LOC: HO.HSMS 10:55
PROVIDERS: PCP Internal Medicine; Visit Provider Psychiatry & Neurology Neurology
DX: G43.909 Migraine, unspecified, not intractable, without status migrainosus (principal); M54.2 Cervicalgia
CPT/HCPCS: 99214